=== PATIENT | female | born 1965 | race Caucasian/White ===

== ENCOUNTER 2020-06-12 17:31 | Inpatient (IN) ==
[2020-06-12] MEDS ORDERED: ASPIRIN CHEW 324 MG PO STA (17:49)
[2020-06-12] MEDS ORDERED: FAMOTIDINE 20MG/5ML IV PUSH IV STA (17:49)
[2020-06-12 18:10] LABS: Basophils # (auto) 0.01 K/uL (0-0.2); Basophils % (auto) 0.1 %; Eosinophils # (auto) 0.17 K/uL (0-0.5); Eosinophils % (auto) 1.7 %; Hematocrit (blood only) 39.1 % (37-47); Hemoglobin 13.3 g/dL (12.0-16.0); Immature Granulocytes # (auto) 0.03 K/uL (0.00-0.02); Immature Granulocytes % (auto) 0.3 %; Lymphocytes # (auto) 2.67 K/uL (1.2-3.4); Mean Corpuscular Hemoglobin 30.7 pg (25-34); Mean Corpuscular Volume 90.3 fL (80-100); Mean Platelet Volume 10.2 fL (7.4-10.4); Monocytes % (auto) 6.1 %; Neutrophils # (auto) 6.42 K/uL (1.4-6.5); Neutrophils % (auto) 64.8 %; Platelet Count 240 K/uL (130-400); RDW Coefficient of Variation 12.5 % (11.5-14.5); RDW Standard Deviation 41.8 fL (36.4-46.3); Red Blood Count 4.33 M/uL (4.2-5.4)
[2020-06-12 18:29] LABS: Partial Thromboplastin Ratio 0.9; Partial Thromboplastin Time 25.6 Seconds (21.0-31.0); Prothrombin Time 10.3 Seconds (9.0-12.0)
--- NOTE | 2020-06-12 18:32 | XRay Report ---
XR chest 1V portable CLINICAL HISTORY: Chest Pain COMPARISON STUDY: Chest radiograph April 06, 2015. FINDINGS: Lung volumes are normal. Lungs are clear. There is no pneumothorax or pleural effusion. Car diac size is normal. Mediastinal contours are normal. There is no evidence for pulmonary edema. Patie nt is mildly rotated. IMPRESSION: No acute cardiopulmonary findings. ACT 112: Negative or not required by law. Electronically signed by: Freddy Ruiz M.D. 06/12/2020 6:30 PM
[2020-06-12 18:41] LABS: Albumin Level 3.3 gm/dl (3.4-5.0); BUN Creatinine Ratio 10.9 (10-20); Calcium 8.7 mg/dl (8.5-10.1); Creatinine Clr Calc Pharmacy 83.9 ml/min; Est GFR (Non-African American) 83.7; Potassium 3.7 mmol/L (3.5-5.1)
[2020-06-12 19:06] LABS: Bilirubin,Total 0.3 mg/dl (0.2-1); Globulin 3.4 gm/dl (2.5-4.0); Total Protein 6.7 gm/dl (6.4-8.2); Troponin I 0.341 ng/ml (0-0.045)
[2020-06-12] MEDS ORDERED: Heparin IV Adult Wt-Based Low-Dose WITH Bolus Protocol IV STA (19:07)
[2020-06-12] MEDS ORDERED: NITROGLYCERIN 2% OINTMENT 30GM TUBE EXT ONE (19:14)
[2020-06-12] MEDS ORDERED: HEPARIN SODIUM/DEXTROSE 25,000 UNITS/500 ML BAG IV SCH (19:15)
[2020-06-12] MEDS ORDERED: HEPARIN SOD (PORCINE) 1000 UNIT/ML 10 ML VIAL ONE (19:40)
--- NOTE | 2020-06-12 19:52 | Emergency Department Note ---
History of Present Illness General Chief Complaint: Chest Pain Stated Complaint: CHEST PAIN, SORE THROAT, ARM PAIN Source: patient and RN notes reviewed Mode of arrival: ambulatory Limitations: no limitations History of Present Illness Provider Complaint: chest pain This patient is a 54-year-old female who presents emergency department with complaints of substernal chest burning into her throat that woke her from sleep in the middle of the night. Patient states she suffers from terrible reflux and felt this is what she was suffering from. She took her omeprazole without any significant relief. Patient states this morning around 930 she noticed that the pain moved into her left shoulder. She went to work today but suffered most of the day. This evening she came home and tried to lay down but could not get comfortable. She denies any significant shortness of breath but admits to nausea no sore throat. Patient states she does smoke cigarettes. She admits to a "significant weight gain" recently. She has not seen her physician in several years. 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 Home Medications Medication Instructions Recorded Confirmed Type omeprazole 20 mg capsule,delayed 20 mg PO DAILY PRN #30 cap 02/04/19 06/12/20 History release magnesium 0 mg PO DAILY 06/12/20 06/12/20 History red yeast rice 600 mg PO DAILY 06/12/20 06/12/20 History Allergies Allergy/AdvReac Type Severity Reaction Status Date / Time No Known Allergies Allergy Verified 06/12/20 18:40 Past Med/Surg History Medical History (Updated 06/12/20 @ 20:01 by Annette Hernandez MD) GERD (gastroesophageal reflux disease) Hypercholesterolemia Obesity (BMI 30-39.9) Tobacco dependency Social History (Updated 06/12/20 @ 19:55 by Annette Hernandez MD) Smoking Status: Current every day smoker Tobacco Type: Cigarettes Current Living Situation: Family current occupational status: employed Feels Safe at Home: Yes Review of Systems See HPI for pertinent positives & negatives. and A total of 10 systems reviewed and were otherwise negative Physical Exam Vital Signs Vital Signs - 24 hr 06/12/20 17:36 06/12/20 18:06 06/12/20 19:50 Temperature 36.8 C Temperature Source Oral Pulse Rate 68 Pulse Rate [Right Finger] 69 Pulse Rhythm Regular Pulse Strength Normal Respiratory Rate 18 12 Respiratory Effort / Characteristics Non-Labored Respiratory Depth Normal Respiratory Pattern Regular Blood Pressure 133/93 Blood Pressure [Right Arm] 172/62 H Blood Pressure Mean 106 Blood Pressure Mean [Right Arm] 98 Blood Pressure Position Sitting Pulse Oximetry 97 98 Oxygen Delivery Method Room Air Room Air Room Air Sepsis Recent Fever Within 48 Hours No Sepsis New/Unexplained Change in Mental Status No Sepsis Action Taken by Nursing No Action Required Vital signs reviewed. General: Well-appearing 54-year-old female, in no significant distress. HEENT: No scleral icterus, PERRLA, neck supple. Atraumatic. Cardiovascular: Regular rate and rhythm, no extra sounds. Pulmonary: Clear to auscultation bilaterally, normal work of breathing. Abdomen: Soft, obese, nontender, nondistended, positive bowel sounds. Musculoskeletal: Atraumatic, no peripheral edema. Neurologic: Patient awake alert and oriented x 3 Skin: Warm, dry, no rash Course Administered Medications Heparin Sodium/Dextrose (Heparin Sodium/Dextrose) 25,000 units in 500 mls @ 0.02 mls/hr IV .Q24H [facility]; Protocol Stop: 07/12/20 19:14 Last Admin: 06/12/20 19:49 Dose: 16 units/hr, 0.3 mls/hr Documented by: [id number] Cosigned by: [id number] Discontinued Medications Aspirin (Aspirin Chew 324 Mg) 162 mg PO NOW STA Stop: 06/12/20 17:50 Last Admin: 06/12/20 18:11 Dose: 162 mg Documented by: [id number] Famotidine (Famotidine 20mg/5ml Iv Push) 20 mg IV ONE STA Stop: 06/12/20 17:50 Last Admin: 06/12/20 18:11 Dose: 20 mg Documented by: [id number] Heparin Sodium (Porcine) (Heparin Sod (Porcine) 1000 Unit/Ml 10 Ml Vial) Confirm Administered Dose 10,000 units .ROUTE .STK-MED ONE Stop: 06/12/20 19:41 Last Admin: 06/12/20 19:49 Dose: 4,000 units Documented by: [id number] Cosigned by: [id number] Nitroglycerin (Nitroglycerin 2% Ointment 30gm Tube) 1 inch EXT NOW ONE Stop: 06/12/20 19:15 Last Admin: 06/12/20 19:49 Dose: 1 inch Documented by: [id number] Medical Decision Making Differential Diagnosis Cardiac ischemia, aortic dissection, pulmonary embolism, pneumothorax, pneumonia, pericarditis, myocarditis, esophageal rupture, GERD, cholecystitis, pancreatitis, musculoskeletal, as well as other pathologies. Home Medications Current Medication List: was personally reviewed by me Laboratory Data Attestation: I reviewed the patient's lab results. Result diagrams: 06/12/20 18:01 06/12/20 18:01 Labs: Lab Results 06/12/20 06/12/20 06/12/20 Range/Units 18:01 18:01 18:01 WBC 9.90 (4.8-10.8) K/uL RBC 4.33 (4.2-5.4) M/uL Hgb 13.3 (12.0-16.0) g/dL Hct 39.1 (37-47) % MCV 90.3 (80-100) fL MCH 30.7 (25-34) pg MCHC 34.0 (32-36) g/dL RDW Std Deviation 41.8 (36.4-46.3) fL RDW Coeff of Ella 12.5 (11.5-14.5) % Plt Count 240 (130-400) K/uL MPV 10.2 (7.4-10.4) fL Immature Gran % (Auto) 0.3 % Neut % (Auto) 64.8 % Lymph % (Auto) 27.0 % Forest % (Auto) 6.1 % Eos % (Auto) 1.7 % Baso % (Auto) 0.1 % Neut # (Auto) 6.42 (1.4-6.5) K/uL Lymph # (Auto) 2.67 (1.2-3.4) K/uL Forest # (Auto) 0.60 H (0.11-0.59) K/uL Eos # (Auto) 0.17 (0-0.5) K/uL Baso # (Auto) 0.01 (0-0.2) K/uL Immature Gran # (Auto) 0.03 H (0.00-0.02) K/uL PT 10.3 (9.0-12.0) Seconds INR 1.0 (0.9-1.1) APTT 25.6 (21.0-31.0) Seconds PTT Ratio 0.9 Sodium 140 (136-145) mmol/L Potassium 3.7 (3.5-5.1) mmol/L Chloride 109 H (98-107) mmol/L Carbon Dioxide 25 (21-32) mmol/L Anion Gap 7.0 (3-11) BUN 9 (7-18) mg/dl Creatinine 0.79 (0.6-1.2) mg/dl Est Cr Clr Drug Dosing 83.9 ml/min Est GFR ( Amer) 97.0 Est GFR (Non-Af Amer) 83.7 BUN/Creatinine Ratio 10.9 (10-20) Glucose 94 (70-99) mg/dl Calcium 8.7 (8.5-10.1) mg/dl Total Bilirubin 0.3 (0.2-1) mg/dl AST 23 (15-37) U/L ALT 43 (12-78) U/L Alkaline Phosphatase 96 (45-117) U/L Troponin I 0.341 H* (0-0.045) ng/ml Total Protein 6.7 (6.4-8.2) gm/dl Albumin 3.3 L (3.4-5.0) gm/dl Globulin 3.4 (2.5-4.0) gm/dl Albumin/Globulin Ratio 1.0 (0.9-2) Lipase 95 (73-393) U/L ECG Data Attestation: I personally reviewed and interpreted this ECG as follows: Indication: chest pain Rate (beats per minute): 58 Rhythm: sinus bradycardia Findings: + other (Normal QTc) and + acute ischemic change; no PAC and no PVC Blood Pressure Blood Pressure Findings: Elevated blood pressure Blood Pressure Disposition: further management by hospitalist LEEANN Narrative This patient was evaluated and appeared to be in no significant distress. IV access was obtained and laboratory work was drawn. An order for cardiac monitoring was placed and the patient is noted to be in a sinus bradycardia. EKG reveals no evidence of acute ischemia. The patient was given IV Pepcid 20 mg in addition to 162 mg of p.o. aspirin as she had taken 2 baby aspirin earlier today. Chest x-ray was performed and is negative for acute pathology. The patient's laboratory work reveals a troponin of 0.341. The patient's risk factors of cholesterol, tobacco smoking and obesity in addition to a positive troponin warrant inpatient evaluation. Patient was placed on a heparin drip and was given 1 inch of nitroglycerin paste for complaints of recurrent left arm discomfort. She was informed of the findings and plan. She was understandably upset but agreeable. Dr. Will of the hospitalist service was consulted and will evaluate the patient for further management. Impression & Plan Acute non-ST elevation myocardial infarction (NSTEMI) Critical Care Time Critical Care Time: Yes I have personally spent greater than 30 minutes of critical care time in the direct management of this patient. This includes bedside care, interpretation of diagnostic studies, and testing, discussion with consultants, patient, and family members, and other required patient management activities. This 30 minutes is in excess of all separately billable procedures. Discharge Plan Visit Data Chief Complaint: Chest Pain Stated Complaint: CHEST PAIN, SORE THROAT, ARM PAIN ED Provider: Annette Hernandez Discharge Problem: Acute non-ST elevation myocardial infarction (NSTEMI) Forms Stand Alone Forms: [facility] [place] [facility] Prescriptions Prescriptions: No Action omeprazole 20 mg capsule,delayed release(DR/EC) 20 mg PO DAILY PRN (Reason: HEARTBURN/INDIGESTION) Qty: 30 RF: 0 magnesium 250 mg Tablet 0 mg PO DAILY RF: 0 red yeast rice 600 mg Tablet 600 mg PO DAILY RF: 0
--- NOTE | 2020-06-12 20:50 | History & Physical Report ---
Date of Service June 12, 2020 Assessment & Plan (1) Chest pain: 54yo C female with history of HLP, tobacco abuse, obesity presenting with CP that started appx 8 hours ago. EKG with no acute ischemic changes. Troponin mildly elevated at 0.341. Patient with HTN while in ER to 190/84. ?NSTEMI vs HTN urgency -Admit to PCU, continuous cardiac monitoring -Trend troponin q 8 hours x 3 sets -Check 2D echo -Check HgbA1C and lipid panel -Nitro PRN chest pain -ASA 81mg po daily -Cardiology consultation appreciated Present on Admission?: Yes (2) GERD (gastroesophageal reflux disease): Chronic -Protonix 40mg po daily -Maalox PRN Present on Admission?: Yes (3) Hypercholesterolemia: Patient reports history of HLP as well as family history of HLP. She has xanthelasma present on bialteral eyelids. Last lipid panel done in October 2018 with total cholesterol of 284, OPL=246, HDL=39 and HT=114. She is not currently on a statin -Repeat lipid panel -Will most likely need statin prior to DC. Present on Admission?: Yes (4) Tobacco dependency: Chronic, >1ppd. Encourage tobacco cessation -Nicoderm patch -Patient enquired about nicotine replacement for quitting vs Chantix to be considered on DC F/E/N - Heplock. Check Mg and PO4 x 1, Heart healthy diet, NPO after midnight for possible cath Ppx - low risk for DVT Code- Full Dispo -Admit to PCU Present on Admission?: Yes History of Present Illness Chief Complaint: chest pain Primary Care Provider: Yvonne Manzano MD Marla Kearns is a 54yo C female with history of HLP, tobacco use presenting with chest pain. Patient reports severe heart burn and regurgitation last evening. She woke up this morning with a sore throat and pain in her upper chest. She felt restless throughout the day and couldn't relax. Around 13:00 she developed discomfort in her chest and down her left arm. Pain 6-7/10 in severity, squeezing discomfort with associated diaphoresis, lightheadedness, dizziness and SOB. Patient is active and independent. 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 She denies chest pain or SOB that occurs with activity or exertion. She has never had a heart attack in the past. No history of CHF, arrhythmia. Patient does not routinely see a physician. On arrival to the ER she was found to be afebrile, Hypertensive otherwise no complaints. No chest pain at this time. ER Course: ASA 162mg, Heparin bolus and drip, Nitro paste x 1 inch Allergies Allergy/AdvReac Type Severity Reaction Status Date / Time No Known Allergies Allergy Verified 06/12/20 18:40 Home Medications Medication Instructions Recorded Confirmed Type omeprazole 20 mg capsule,delayed 20 mg PO DAILY PRN #30 cap 02/04/19 06/12/20 History release magnesium 0 mg PO DAILY 06/12/20 06/12/20 History red yeast rice 600 mg PO DAILY 06/12/20 06/12/20 History Past Med/Surg History Medical History (Updated 06/12/20 @ 21:12 by Ivana Will DO) GERD (gastroesophageal reflux disease) Hypercholesterolemia Obesity (BMI 30-39.9) Tobacco dependency Surgical History (Updated 06/12/20 @ 21:04 by Ivana Will DO) History of section Family History (Updated 06/12/20 @ 21:04 by Ivana Will DO) Other Coronary heart disease Dyslipidemia Social History (Updated 06/12/20 @ 19:55 by Annette Hernandez MD) Smoking Status: Current every day smoker Tobacco Type: Cigarettes Cigarettes Per Day: 20; Hx Alcohol Use: No Hx Substance Use: No Preferred Language: R[place] Communication Ability: Effective Communication Assistant Required: No Beliefs That Will Affect Care: None Current Living Situation: Family current occupational status: employed Other Information That Helps Us Care for You: No Feels Safe at Home: Yes Safety Concerns: Feels Safe At This Time Assistive Devices: None Review of Systems Review of Systems: All systems reviewed & are unremarkable except as noted in HPI & below Physical Exam Physical Exam: General: patient resting comfortably, NAD, non-toxic in appearance, AA&O x 4, anxious Skin: warm, dry, intact, no rashes, xanthelasma plaques present on bilateral upper eyelids. HEENT: NC/AT, PERRL, EOMI, conjunctiva without injection, external ear normal to inspection and nontender, nares patent, moist mucus membranes, dentition intact, no oropharyngeal lesions, neck supple, trachea midline, no LAD, no thyromegaly, no JVD Heart: +S1/S2, regular, 3/6 DOMINIC at 2nd right ICS, right carotid bruit Lungs: equal air entry bilaterally, no rales/rhonchi/wheezes Abd: +BS, soft, NT/ND, no masses/organomegaly/ascites Ext: warm, 2+ pulses in UE/LE bilaterally, no clubbing/cyanosis or edema Neuro: nonfocal, patient AA&O x 4, speech intact, no facial droop, moving all extremities on command with equal strength 5/5 Results & Data Results & Data ([facility]) Vital Signs (Past 12 Hours) Vital Signs Temp Pulse Pulse Resp BP BP Pulse Ox 06/12/20 19:50 69 12 172/62 H 98 06/12/20 17:36 36.8 C 68 18 133/93 97 Laboratory Results Lab Results 06/12/20 06/12/20 06/12/20 Range/Units 18:01 18:01 18:01 WBC 9.90 (4.8-10.8) K/uL RBC 4.33 (4.2-5.4) M/uL Hgb 13.3 (12.0-16.0) g/dL Hct 39.1 (37-47) % MCV 90.3 (80-100) fL MCH 30.7 (25-34) pg MCHC 34.0 (32-36) g/dL RDW Std Deviation 41.8 (36.4-46.3) fL RDW Coeff of Ella 12.5 (11.5-14.5) % Plt Count 240 (130-400) K/uL MPV 10.2 (7.4-10.4) fL Immature Gran % (Auto) 0.3 % Neut % (Auto) 64.8 % Lymph % (Auto) 27.0 % Josephine % (Auto) 6.1 % Eos % (Auto) 1.7 % Baso % (Auto) 0.1 % Neut # (Auto) 6.42 (1.4-6.5) K/uL Lymph # (Auto) 2.67 (1.2-3.4) K/uL Josephine # (Auto) 0.60 H (0.11-0.59) K/uL Eos # (Auto) 0.17 (0-0.5) K/uL Baso # (Auto) 0.01 (0-0.2) K/uL Immature Gran # (Auto) 0.03 H (0.00-0.02) K/uL PT 10.3 (9.0-12.0) Seconds INR 1.0 (0.9-1.1) APTT 25.6 (21.0-31.0) Seconds PTT Ratio 0.9 Sodium 140 (136-145) mmol/L Potassium 3.7 (3.5-5.1) mmol/L Chloride 109 H (98-107) mmol/L Carbon Dioxide 25 (21-32) mmol/L Anion Gap 7.0 (3-11) BUN 9 (7-18) mg/dl Creatinine 0.79 (0.6-1.2) mg/dl Est Cr Clr Drug Dosing 83.9 ml/min Est GFR ( Amer) 97.0 Est GFR (Non-Af Amer) 83.7 BUN/Creatinine Ratio 10.9 (10-20) Glucose 94 (70-99) mg/dl Calcium 8.7 (8.5-10.1) mg/dl Total Bilirubin 0.3 (0.2-1) mg/dl AST 23 (15-37) U/L ALT 43 (12-78) U/L Alkaline Phosphatase 96 (45-117) U/L Troponin I 0.341 H* (0-0.045) ng/ml Total Protein 6.7 (6.4-8.2) gm/dl Albumin 3.3 L (3.4-5.0) gm/dl Globulin 3.4 (2.5-4.0) gm/dl Albumin/Globulin Ratio 1.0 (0.9-2) Lipase 95 (73-393) U/L SARS-CoV-2 Ag (Rapid) (Negative) 06/12/20 Range/Units Unknown WBC (4.8-10.8) K/uL RBC (4.2-5.4) M/uL Hgb (12.0-16.0) g/dL Hct (37-47) % MCV (80-100) fL MCH (25-34) pg MCHC (32-36) g/dL RDW Std Deviation (36.4-46.3) fL RDW Coeff of Ella (11.5-14.5) % Plt Count (130-400) K/uL MPV (7.4-10.4) fL Immature Gran % (Auto) % Neut % (Auto) % Lymph % (Auto) % Josephine % (Auto) % Eos % (Auto) % Baso % (Auto) % Neut # (Auto) (1.4-6.5) K/uL Lymph # (Auto) (1.2-3.4) K/uL Josephine # (Auto) (0.11-0.59) K/uL Eos # (Auto) (0-0.5) K/uL Baso # (Auto) (0-0.2) K/uL Immature Gran # (Auto) (0.00-0.02) K/uL PT (9.0-12.0) Seconds INR (0.9-1.1) APTT (21.0-31.0) Seconds PTT Ratio Sodium (136-145) mmol/L Potassium (3.5-5.1) mmol/L Chloride (98-107) mmol/L Carbon Dioxide (21-32) mmol/L Anion Gap (3-11) BUN (7-18) mg/dl Creatinine (0.6-1.2) mg/dl Est Cr Clr Drug Dosing ml/min Est GFR ( Amer) Est GFR (Non-Af Amer) BUN/Creatinine Ratio (10-20) Glucose (70-99) mg/dl Calcium (8.5-10.1) mg/dl Total Bilirubin (0.2-1) mg/dl AST (15-37) U/L ALT (12-78) U/L Alkaline Phosphatase (45-117) U/L Troponin I (0-0.045) ng/ml Total Protein (6.4-8.2) gm/dl Albumin (3.4-5.0) gm/dl Globulin (2.5-4.0) gm/dl Albumin/Globulin Ratio (0.9-2) Lipase (73-393) U/L SARS-CoV-2 Ag (Rapid) Negative (Negative) Diagnostic Findings XR chest 1V portable CLINICAL HISTORY: Chest Pain COMPARISON STUDY: Chest radiograph April 06, 2015. FINDINGS: Lung volumes are normal. Lungs are clear. There is no pneumothorax or pleural effusion. Cardiac size is normal. Mediastinal contours are normal. There is no evidence for pulmonary edema. Patient is mildly rotated. IMPRESSION: No acute cardiopulmonary findings. ACT 112: Negative or not required by law. Electronically signed by: Freddy Ruiz M.D. 06/12/2020 6:30 PM Dictated: 06/12/201829Transcribed: 06/12/201829 ECG Additional Comments: The study shows SB at 58, normal axis, DJ=016, QRS=88, LLf=408, no acute ischemic changes PG Care Time/CCT Total # of Minutes Spent Total Time Spent with Patient: Total time spent is greater than 50% in coordination of care (as documented) at patient's floor/unit and/or counseling patient: Coding Level of Care Code 14930 Initial Inpt Care Lvl 3 Diagnoses Chest pain R07.9 Chest pain type: unspecified GERD (gastroesophageal reflux disease) K21.9 Esophagitis presence: esophagitis presence not specified Hypercholesterolemia E78.00 Tobacco dependency F17.200 (1) Chest pain Chest pain type: unspecified Qualified Code(s): R07.9 - Chest pain, unspecified (2) GERD (gastroesophageal reflux disease) Esophagitis presence: esophagitis presence not specified Qualified Code(s): K21.9 - Gastro-esophageal reflux disease without esophagitis
[2020-06-12] MEDS ORDERED: ALUMINUM/MAGNESIUM SUSP 30 ML UDC PO PRN (21:11)
[2020-06-12] MEDS ORDERED: ONDANSETRON INJ 2 MG/ML 2 ML VIAL IV PRN (21:38)
[2020-06-12] MEDS ORDERED: NITROGLYCERIN SL 0.4 MG/TAB TAB SL PRN (21:38)
[2020-06-12] MEDS ORDERED: ACETAMINOPHEN 325 MG TAB PO PRN (21:38)
[2020-06-12 22:04] LABS: Magnesium 2.1 mg/dl (1.8-2.4); Phosphorus 3.7 mg/dl (2.5-4.9)
[2020-06-13] MEDS: MIRTAZAPINE TAB 15 MG TAB PO SCH ×2 (00:22→02:27)
[2020-06-13 00:51] LABS: Partial Thromboplastin Ratio 1.2; Partial Thromboplastin Time 33.9 Seconds (21.0-31.0)
[2020-06-13] MEDS ORDERED: HEPARIN IV BOLUS 3,000 UNITS in SYRINGE 0 ML IV ONE (02:00)
--- NOTE | 2020-06-13 05:34 | Communication Note ---
Date of Service: June 13, 2020 Patient with significant bradycardia while asleep with a 4 second pause and another 3 second pause; 13 beat vtach on monitor, obvious sleep apnea with a gonal breathing. She is easily arousable and oriented but is sleepy and goes back to sleep quickly. She has no acute complaints. I along with nursing staff concerned that agonal breathing could lead to cardiac arrest. Will order CPAP to place on patient until more awake alert. She denies history of sleep apnea or having a prior sleep study done. Will get an ECG to ensure no significant ST changes that would require more urgent intervention. Will get STAT labs to see if any electrolyte corrections could be made to better protect her from cardiac dysfunction. Resident Activity Tracking Resident Involvement: Resident Care Provided Care Provided: Adult Hospital Medicine
[2020-06-13] MEDS ORDERED: MELATONIN 3 MG TAB PO PRN (05:36)
[2020-06-13 06:05] LABS: Estimated Average Glucose 117 mg/dl; Hemoglobin A1C 5.7 % (4.5-5.6)
[2020-06-13 06:26] LABS: Basophils # (auto) 0.02 K/uL (0-0.2); Basophils % (auto) 0.2 %; Eosinophils # (auto) 0.23 K/uL (0-0.5); Eosinophils % (auto) 2.7 %; Hematocrit (blood only) 36.5 % (37-47); Hemoglobin 12.3 g/dL (12.0-16.0); Immature Granulocytes # (auto) 0.03 K/uL (0.00-0.02); Immature Granulocytes % (auto) 0.4 %; Lymphocytes # (auto) 3.32 K/uL (1.2-3.4); Lymphocytes % (auto) 39.3 %; Mean Corpuscular Hemoglobin 30.9 pg (25-34); Mean Corpuscular Volume 91.7 fL (80-100); Mean Platelet Volume 10.1 fL (7.4-10.4); Monocytes # (auto) 0.47 K/uL (0.11-0.59); Monocytes % (auto) 5.6 %; Neutrophils # (auto) 4.38 K/uL (1.4-6.5); Neutrophils % (auto) 51.8 %; Platelet Count 252 K/uL (130-400); RDW Coefficient of Variation 12.8 % (11.5-14.5); RDW Standard Deviation 43.2 fL (36.4-46.3); Red Blood Count 3.98 M/uL (4.2-5.4); White Blood Count 8.45 K/uL (4.8-10.8)
[2020-06-13 06:28] LABS: Mean Corpuscular Hgb Conc 33.7 g/dL (32-36)
[2020-06-13 06:53] LABS: Magnesium 2.3 mg/dl (1.8-2.4); Phosphorus 4.4 mg/dl (2.5-4.9); Troponin I 0.618 ng/ml (0-0.045)
[2020-06-13 07:52] LABS: Partial Thromboplastin Ratio 1.4; Partial Thromboplastin Time 39.6 Seconds (21.0-31.0)
--- NOTE | 2020-06-13 09:32 | Cardiology Consultation ---
Date of Consultation June 13, 2020 Assessment & Plan (1) Acute non-ST elevation myocardial infarction (NSTEMI): (2) Hypercholesterolemia: (3) Bradycardia: (4) Sleep apnea: ASSESSMENT/PLAN: 1. NSTEMI: Her symptoms are a bit atypical but she has developed troponin that are barely diagnostic of myocardial infarction. She has multiple risk factors including LDL in the past over 200, tobacco abuse, and was hypertensive on presentation. Recommend cardiac catheterization. Risks and benefits were discussed with her. She was made aware that CT surgery is not available this facility. She was agreeable to undergo diagnostic angiography and PCI, if deemed appropriate. Continue aspirin 81 mg daily. She is on a heparin drip per primary service. Start high-intensity statin therapy. Will consider NORAH- inhibitor. No beta-paola due to bradycardia at this time. 2. Hypercholesterolemia: LDL in 2019 was 214 and during this hospital stay 154. Start high-intensity statin therapy in the form of atorvastatin 80 mg daily. 3. Sleep apnea: It is reported in the chart that she had obvious sleep apnea with agonal breathing overnight. We discussed sleep apnea. Recommend formal testing and treatment as appropriate. 4. Bradycardia: Mildly bradycardic on presenting ECG however more profound bradycardia overnight with witnessed sleep apnea. No beta-paola at this time given bradycardia while awake however the more profound bradycardia is likely due to sleep apnea and should improve with appropriate therapy. No indication for pacemaker at this time. 5. Disposition: Cardiology will continue to follow. Cardiac catheterization as above. Patient care communicated with Dr. Sheppard of the primary hospitalist service. Highly complex medical issues. Thank you for allowing me to participate in the care of your patient. Please call for any other questions or concerns. Sincerely, Phani Nunez M.D. History of Present Illness Reason for Consultation: NSTEMI; chest pain Requesting Physician: Dr. Lorna Will Attending Physician: Mary Beth Sheppard MD History of Present Illness Ms. Kearns is a pleasant 54-year-old female with history significant for hypercholesterolemia, tobacco abuse, and acid reflux. She does not follow with physician on a regular basis. She was admitted on 06/12/2020 with neck and left arm pain. Admitting note also mentions chest pain however she denies that at this time. She states that 2 days ago she was having significant acid reflux, specifically noted in the back of her mouth. She denies actual vomiting. She states that she does have acid reflux occasionally. Yesterday when she awakened, she noted that the base of her neck was sore. She took Mucinex without improvement. She laid back down later in the day and noted left arm pain. She also had lightheadedness, diaphoresis, and associated shortness of breath. She could not get comfortable. According to the HPI, she also had chest discomfort at approximately 1:00 p.m. which she described as a squeezing discomfort at that time. In the emergency department, she was given aspirin, heparin, and nitro paste. Her symptoms resolved. She believes that her symptoms persisted however for approximately 6 hours yesterday. She had occasional palpitations yesterday described as a fluttering sensation but none today. She has occasional leg swelling historically. She does not exercise but she remains active at home, taking care of her elderly mother with Alzheimer's. She has not had recent chest discomfort or shortness of breath with exertion prior to yesterday's events. She is currently chest pain-free and her neck pain has completely resolved. She still has some soreness in her left arm. Overnight, it was noted by nursing staff that she would be bradycardic at time with rates in the 30s but remained in sinus. She had pauses up to 3.5 seconds. She admits that she snores and has paroxysmal nocturnal dyspnea. She believes that she stops breathing at times. She has not had a sleep study. Review of systems: As above. She also denies melena, hematochezia, hematuria, syncope, near-syncope. Review of systems otherwise negative/unremarkable. Family history: Father had an [place] during leg amputation secondary to peripheral arterial disease. Social history: She smokes 1 pack per day and has smoked since the age of 14, briefly quitting at times. Occasional alcohol. No drugs. . Has 1 son. She lives at home with her son and mother with Alzheimer's. 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 She is unaccompanied. Allergies Allergy/AdvReac Type Severity Reaction Status Date / Time No Known Allergies Allergy Verified 06/12/20 18:40 Home Medications Medication Instructions Recorded Confirmed Type omeprazole 20 mg capsule,delayed 20 mg PO DAILY PRN #30 cap 02/04/19 06/12/20 History release magnesium 0 mg PO DAILY 06/12/20 06/12/20 History red yeast rice 600 mg PO DAILY 06/12/20 06/12/20 History Patient History Medical History (Updated 06/13/20 @ 09:38 by Joseph Nunez MD) GERD (gastroesophageal reflux disease) Hypercholesterolemia Obesity (BMI 30-39.9) Tobacco dependency Surgical History (Updated 06/12/20 @ 21:04 by Ivana Will DO) History of section Family History (Updated 06/12/20 @ 21:04 by Ivana Will DO) Other Coronary heart disease Dyslipidemia Social History (Updated 06/12/20 @ 19:55 by Annette Hernandez MD) Smoking Status: Current every day smoker Tobacco Type: Cigarettes Cigarettes Per Day: 20; Hx Alcohol Use: No Hx Substance Use: No Preferred Language: Lithuanian Communication Ability: Effective Director Technical Required: No Beliefs That Will Affect Care: None Current Living Situation: Family current occupational status: employed Feels Safe at Home: Yes Assistive Devices: None Physical Exam Physical Exam: Gen.: No acute distress. Was sleeping but easily arousable with verbal stimuli. Oriented. HEENT: Anicteric sclera. Xanthelasma plaques noted on bilateral upper eyelids. Neck: No JVD. No bruits. Normal carotid upstrokes bilaterally. Cardiac: PMI was nonpalpable. No ventricular heave. Regular. Normal S1-S2. 1/6 systolic murmur. No rubs, or gallops. Pulmonary: Clear to auscultation bilaterally without wheezes, rales, or rhonchi. Abdomen: Soft, nontender, nondistended, with normoactive bowel sounds. No bruits noted. Extremities: 2+ radial pulses bilaterally. 2+ posterior tibialis pulses bilaterally. No edema or cyanosis. No palpable cords. Psychiatric: Affect appears appropriate. Results & Data ([facility]) Vital Signs (Past 12 Hours) Vital Signs Temp Pulse Pulse Resp BP BP Pulse Ox 06/13/20 09:10 62 18 145/90 H 96 06/13/20 08:15 36.5 C 52 L 18 125/71 97 06/13/20 05:43 53 L 17 96 06/13/20 03:59 36.6 C 54 L 8 L 122/70 94 06/13/20 00:00 67 06/12/20 23:50 36.6 C 67 18 130/71 97 06/12/20 22:00 36.8 C 61 18 149/89 H 95 06/12/20 21:46 60 06/12/20 21:38 83 Laboratory Results Laboratory Results - last 24 hr 06/12/20 06/12/20 06/12/20 18:01 18:01 18:01 WBC 9.90 RBC 4.33 Hgb 13.3 Hct 39.1 MCV 90.3 MCH 30.7 MCHC 34.0 RDW Std Deviation 41.8 RDW Coeff of Ella 12.5 Plt Count 240 MPV 10.2 Immature Gran % (Auto) 0.3 Neut % (Auto) 64.8 Lymph % (Auto) 27.0 Cataño % (Auto) 6.1 Eos % (Auto) 1.7 Baso % (Auto) 0.1 Neut # (Auto) 6.42 Lymph # (Auto) 2.67 Cataño # (Auto) 0.60 H Eos # (Auto) 0.17 Baso # (Auto) 0.01 Immature Gran # (Auto) 0.03 H PT 10.3 INR 1.0 APTT 25.6 PTT Ratio 0.9 Sodium 140 Potassium 3.7 Chloride 109 H Carbon Dioxide 25 Anion Gap 7.0 BUN 9 Creatinine 0.79 Est Cr Clr Drug Dosing 83.9 Est GFR ( Amer) 97.0 Est GFR (Non-Af Amer) 83.7 BUN/Creatinine Ratio 10.9 Glucose 94 Estimat Average Glucose Hemoglobin A1c Calcium 8.7 Phosphorus Magnesium Total Bilirubin 0.3 AST 23 ALT 43 Alkaline Phosphatase 96 Troponin I 0.341 H* Total Protein 6.7 Albumin 3.3 L Globulin 3.4 Albumin/Globulin Ratio 1.0 Triglycerides Cholesterol LDL Cholesterol, Calc VLDL Cholesterol, Calc HDL Cholesterol Cholesterol/HDL Ratio Lipase 95 SARS-CoV-2 Ag (Rapid) 06/12/20 06/12/20 06/12/20 18:01 18:01 Unknown WBC RBC Hgb Hct MCV MCH MCHC RDW Std Deviation RDW Coeff of Ella Plt Count MPV Immature Gran % (Auto) Neut % (Auto) Lymph % (Auto) Cata[place] % (Auto) Eos % (Auto) Baso % (Auto) Neut # (Auto) Lymph # (Auto) Cata[place] # (Auto) Eos # (Auto) Baso # (Auto) Immature Gran # (Auto) PT INR APTT PTT Ratio Sodium Potassium Chloride Carbon Dioxide Anion Gap BUN Creatinine Est Cr Clr Drug Dosing Est GFR ( Amer) Est GFR (Non-Af Amer) BUN/Creatinine Ratio Glucose Estimat Average Glucose 117 Hemoglobin A1c 5.7 H Calcium Phosphorus 3.7 Magnesium 2.1 Total Bilirubin AST ALT Alkaline Phosphatase Troponin I Total Protein Albumin Globulin Albumin/Globulin Ratio Triglycerides 101 Cholesterol 217 H LDL Cholesterol, Calc 154 VLDL Cholesterol, Calc 20 HDL Cholesterol 43 Cholesterol/HDL Ratio 5 Lipase SARS-CoV-2 Ag (Rapid) Negative 06/13/20 06/13/20 06/13/20 00:09 02:02 06:09 WBC 8.45 RBC 3.98 L Hgb 12.3 Hct 36.5 L MCV 91.7 MCH 30.9 MCHC 33.7 RDW Std Deviation 43.2 RDW Coeff of Ella 12.8 Plt Count 252 MPV 10.1 Immature Gran % (Auto) 0.4 Neut % (Auto) 51.8 Lymph % (Auto) 39.3 Cataño % (Auto) 5.6 Eos % (Auto) 2.7 Baso % (Auto) 0.2 Neut # (Auto) 4.38 Lymph # (Auto) 3.32 Cataño # (Auto) 0.47 Eos # (Auto) 0.23 Baso # (Auto) 0.02 Immature Gran # (Auto) 0.03 H PT INR APTT 33.9 H PTT Ratio 1.2 Sodium Potassium Chloride Carbon Dioxide Anion Gap BUN Creatinine Est Cr Clr Drug Dosing Est GFR ( Amer) Est GFR (Non-Af Amer) BUN/Creatinine Ratio Glucose Estimat Average Glucose Hemoglobin A1c Calcium Phosphorus Magnesium Total Bilirubin AST ALT Alkaline Phosphatase Troponin I 0.699 H* Total Protein Albumin Globulin Albumin/Globulin Ratio Triglycerides Cholesterol LDL Cholesterol, Calc VLDL Cholesterol, Calc HDL Cholesterol Cholesterol/HDL Ratio Lipase SARS-CoV-2 Ag (Rapid) 06/13/20 06/13/20 06:09 07:31 WBC RBC Hgb Hct MCV MCH MCHC RDW Std Deviation RDW Coeff of Ella Plt Count MPV Immature Gran % (Auto) Neut % (Auto) Lymph % (Auto) Cata[place] % (Auto) Eos % (Auto) Baso % (Auto) Neut # (Auto) Lymph # (Auto) C[place] # (Auto) Eos # (Auto) Baso # (Auto) Immature Gran # (Auto) PT INR APTT 39.6 H PTT Ratio 1.4 Sodium Potassium Chloride Carbon Dioxide Anion Gap BUN Creatinine Est Cr Clr Drug Dosing Est GFR ( Amer) Est GFR (Non-Af Amer) BUN/Creatinine Ratio Glucose Estimat Average Glucose Hemoglobin A1c Calcium Phosphorus 4.4 Magnesium 2.3 Total Bilirubin AST ALT Alkaline Phosphatase Troponin I 0.618 H* Total Protein Albumin Globulin Albumin/Globulin Ratio Triglycerides Cholesterol LDL Cholesterol, Calc VLDL Cholesterol, Calc HDL Cholesterol Cholesterol/HDL Ratio Lipase SARS-CoV-2 Ag (Rapid) Diagnostic Findings Telemetry personally reviewed: Sinus rhythm with sinus bradycardia and pauses up to 3.5 seconds overnight. Echo 06/13/2020 personally reviewed: Preliminary review demonstrated normal LV systolic function and normal wall motion. No severe valvular stenosis or regurgitation. Formal review pending. ECGs personally reviewed: ECG 06/12/2020 at 6:02 p.m.: Sinus bradycardia 58 beats per minute. ECG 06/13/2020 at 7:20 a.m.: Sinus bradycardia 56 beats per minute. Chest x-ray 06/12/2020: No acute cardiopulmonary findings. Medications Administered Current Inpatient Medications Acetaminophen (Acetaminophen 325 Mg Tab) 650 mg PO Q4H PRN PRN Reason: Pain or Fever Stop: 07/12/20 21:37 Al Hydrox/Mg Hydrox/Simethicone (Aluminum/Magnesium Susp 30 Ml Udc) 15 ml PO Q6H PRN PRN Reason: heartburn Stop: 07/12/20 21:10 Aspirin (Aspirin 81 Mg Ectab) 81 mg PO QAM [facility] Stop: 07/13/20 08:59 Heparin Sodium/Dextrose (Heparin Sodium/Dextrose) 25,000 units in 500 mls @ 19 mls/hr IV .Q24H [facility]; Protocol Stop: 07/12/20 19:14 Last Titration: 06/13/20 01:57 Dose: 950 units/hr, 19 mls/hr Documented by: Melatonin (Melatonin 3 Mg Tab) 3 mg PO HS PRN PRN Reason: Sleep Stop: 07/13/20 05:35 Miscellaneous (Remove Nicoderm Patch) 1 ea N/A DAILY@0859 [facility] Stop: 07/13/20 08:58 Nicotine (Nicotine 21 Mg/24 Hr Tdsy) 21 [facility] Stop: 07/13/20 08:59 Nitroglycerin (Nitroglycerin Sl 0.4 Mg/Tab Tab) 0.4 mg SL UD PRN PRN Reason: Chest Pain Stop: 07/12/20 21:37 Ondansetron HCl (Ondansetron Inj 2 Mg/Ml 2 Ml Vial) 4 mg IV Q6H PRN PRN Reason: Nausea Stop: 07/12/20 21:37 Pantoprazole Sodium (Pantoprazole 40 Mg Tab) 40 mg PO DAILY TRISHA Stop: 07/13/20 08:59 PG Care Time/CCT Total # of Minutes Spent Total Time Spent with Patient: Total time spent is greater than 50% in coordination of care (as documented) at patient's floor/unit and/or counseling patient: Coding Level of Care Code 17486 Inpt Consult Level 5 Diagnoses Acute non-ST elevation myocardial infarction (NSTEMI) I21.4 Hypercholesterolemia E78.00 Bradycardia R00.1 Sleep apnea G47.30
[2020-06-13] MEDS ORDERED: MIDAZOLAM HCL 1 MG/ML 2ML VIAL ONE ×2 (11:02→11:38)
[2020-06-13] MEDS ORDERED: HEPARIN (PORCINE) 1000 UNIT/ML 10 ML (CATH LAB USE ONLY) ONE ×2 (11:02→12:22)
[2020-06-13] MEDS ORDERED: niCARdipine HCL INJ 2.5 MG/ML 10 ML AMP ONE (11:02)
[2020-06-13] MEDS ORDERED: fentaNYL citrate 100 MCG/2 ML VIAL ONE (11:02)
[2020-06-13] MEDS ORDERED: NITROGLYCERIN/D5W 100MCG/ML 20ML SYR ONE (11:03)
--- NOTE | 2020-06-13 11:08 | Pre Anesthesia Assessment ---
Date of Service June 13, 2020 Pre Sedation Assessment Vital Signs Temp Pulse Pulse Resp BP BP BP 06/13/20 09:10 62 18 145/90 H 06/13/20 09:06 55 L 06/13/20 08:15 36.5 C 52 L 18 125/71 06/13/20 05:43 53 L 17 06/13/20 03:59 36.6 C 54 L 8 L 122/70 06/13/20 00:00 67 06/12/20 23:50 36.6 C 67 18 130/71 06/12/20 22:00 36.8 C 61 18 149/89 H 06/12/20 21:46 60 06/12/20 21:38 83 06/12/20 20:42 58 L 18 177/71 H 06/12/20 19:50 69 12 172/62 H 06/12/20 19:46 83 06/12/20 17:36 36.8 C 68 18 133/93 Pulse Ox 06/13/20 09:10 96 06/13/20 09:06 06/13/20 08:15 97 06/13/20 05:43 96 06/13/20 03:59 94 06/13/20 00:00 06/12/20 23:50 97 06/12/20 22:00 95 06/12/20 21:46 06/12/20 21:38 06/12/20 20:42 98 06/12/20 19:50 98 06/12/20 19:46 06/12/20 17:36 97 Cardiovascular + bradycardic Respiratory normal respiratory effort, lungs clear to auscultation Pre-Sedation Airway Assessment Smoking Status: Current every day smoker Hx Sleep Apnea: No Short, Thick Neck: No Thyromental Distance: > or= 3.5 Finger Breadths Oral Cavity: + Chipped Teeth and + Dental Abnormalities Mallampati Class: IV ASA: ASA3 NPO Status Date of Last Intake of Fluids: 06/12/20 Time of Last Intake of Fluids: 21:00 Date of Last Intake of Solid Food: 06/12/20 Time of Last Intake of Solid Foods: 21:00 Procedure Planning Contraindications for Sedation: none Current Medications Reviewed: Yes Notes The planned sedation has been discussed with the patient. Informed Consent was obtained. I have identified the patient, determined the appropriateness of sedation and have assessed the patient immediately prior to the procedure. All medicine(s) and interventions are by my order.
--- NOTE | 2020-06-13 12:13 | Cardiac Catheterization ---
[facility] Data: Rn Labor Delivery Cardiac Status Clinical evaluation leading to the procedure CAD Presenation: Non STEMI and Unstable angina Anginal Classification: CCS IV Heart Failure: No Cardiogenic Shock within 24 Hours: No Cardiac Arrest within 24 Hours: No Imaging Studies Past 6 Months: Yes Stress Studies Past 6 Months: No Standard Exercise Test: No Stress Echocardiogram: No Stress Testing w/SPECT MPI: No Cardiac CTA: No Coronary Anatomy Dominant: Right Left Ventricular Angiography EF (%): n/a Diagnostic Physicians Name: Joseph Nunez MD Status: Elective Closure Device Percutaneous Entry Location: Radial Closure Device: Radial Band Recommendations: Management Recommendatons (as above) Cardiac Cath Procedure Full Procedure Date June 13, 2020 Pre-Procedure Diagnosis Pre-Procedure Diagnosis: Non STEMI AUC Score AUC Score: 8 Post-Procedure Diagnosis Post-Procedure Diagnosis: Severe CAD and Elevated Intracardiac Pressures Procedure(s) Performed Procedure(s) Performed: Coronary Angiography and Left Heart Cath Bullard Operator Joseph Nunez MD Mental Health Nurse(s) Arabella Estimated Blood Loss Estimated Blood Loss: < 25 ml Medication(s) Medication(s): Fentanyl, Heparin, Lidocaine 1%, Nicardipine and Versed Summary of Findings Procedures: 1. Coronary angiography 2. Left heart catheterization 3. Moderate sedation Coronary angiography: 1. Left main coronary artery: The LMCA is very short in length. No significant CAD. 2. Left anterior descending colon the LAD wraps around the apex. Ostial LAD 30%. Mid LAD 50%. Small D1. 3. Circumflex: The circumflex is a large-caliber vessel. Mid circumflex 20 to 30%. Very small OM1, OM 2. Large OM 3 proximal 40 to 50%. 4. Right coronary artery: RCA is medium in caliber and dominant. Proximal RCA 90 to 95%. Mid RCA 30%. Distal RCA 30%. PL and PDA without significant CAD. Left heart catheterization: 1. Left ventriculography was not performed. 2. Mildly elevated LVEDP; 18 mmHg. 3. Possible mild aortic stenosis. Peak to peak gradient across the aortic valve was approximately 10 mmHg. Moderate sedation: 1. Sedation start time: 11:18 AM 2. Sedation end time: 11:40 AM Procedural notes: 1. Catheterization was performed via the right radial artery. Initially, 6 Turkmen JL 3.5 diagnostic catheter was used for selective angiography of the LMCA. She developed significant spasm in the right arm. She received additional dose of nicardipine and the remainder of the catheterization was performed with 4 Turkmen diagnostic catheters. Impression: 1. Severe CAD involving proximal RCA. 2. Otherwise, mild and moderate nonobstructive CAD. 3. Mild aortic stenosis. 4. Mildly elevated left-sided filling pressure. Plan: 1. Dr. Noe of interventional cardiology was asked to review imaging and plans to perform PCI of the proximal RCA. 2. Risk factor modification and optimize medical therapy. 3. Cardiac rehab. Hemodynamics Rest Ao:: 121/55 Final Ao: 135/64 LV: 132/2/18 Recommendations Recommendations: Management Recommendatons (as above) Specimens Specimens: None Radiation Exposure (mGy) 582 mGy. Fluoro time 3.9 min. Contrast (mls) 30 ml Procedural Complication(s) None Disposition remains in lab for PCI attempt I attest to the content of the Intraoperative Record and any orders documented therein. Any exceptions are noted below. [facility] Card Cath Procedure Codes Cardiac Catheterization Procedure 1: Cardiovascular Cath Procedures: 33090 Coronaries and LHC (+/-LV) Moderate Sedation Procedure 1: Sedation/Anesthesia: 86128 Mod Sedation by the same physician;Init15 Min Child Age 5 & Up Procedure 2: Sedation/Anesthesia: 75001 Mod Sedation by the same physician; Ea [id number] Minutes PG Care Time/CCT Total # of Minutes Spent Total Time Spent with Patient: Total time spent is greater than 50% in coordination of care (as documented) at patient's floor/unit and/or counseling patient:
[2020-06-13] MEDS ORDERED: TICAGRELOR 90 MG TAB PO ONE (12:33)
--- NOTE | 2020-06-13 12:40 | Post Anesthesia Assessment ---
Date of Service June 13, 2020 Post Sedation Assessment Vital Signs Temp Pulse Pulse Resp BP BP BP 06/13/20 09:10 62 18 145/90 H 06/13/20 09:06 55 L 06/13/20 08:15 97.7 F 52 L 18 125/71 06/13/20 05:43 53 L 17 06/13/20 03:59 97.9 F 54 L 8 L 122/70 06/13/20 00:00 67 06/12/20 23:50 97.9 F 67 18 130/71 06/12/20 22:00 98.2 F 61 18 149/89 H 06/12/20 21:46 60 06/12/20 21:38 83 06/12/20 20:42 58 L 18 177/71 H 06/12/20 19:50 69 12 172/62 H 06/12/20 19:46 83 06/12/20 17:36 98.2 F 68 18 133/93 Pulse Ox 06/13/20 09:10 96 06/13/20 09:06 06/13/20 08:15 97 06/13/20 05:43 96 06/13/20 03:59 94 06/13/20 00:00 06/12/20 23:50 97 06/12/20 22:00 95 06/12/20 21:46 06/12/20 21:38 06/12/20 20:42 98 06/12/20 19:50 98 06/12/20 19:46 06/12/20 17:36 97 Recovery Score Activity: Moves 4 extremities Respiration: Deep Breath/Cough Circulation: +/-20% PreAnes Value Consciousness: Fully Awake Oxygen Saturation: O2 needed for >90% Discharge Sedation Level of Care: Fast Track Phase II Post Sedation Plan On clinical assessment, the patient appears to have tolerated the sedation without complications. Patient is recovering as anticipated. Patient will continue to be monitored by nursing and may be discharged when sedation discharge criteria are met per below protocol. Upon Completions of procedure up to 15 minutes continue every 5 minute vital signs and the P.A.R. score; then discharge to a Phase I or Fast Track to Phase II per the following guidelines: * Discharge Patient to appropriate Phase II area if PAR is 8 or greater or return to pre- procedure baseline. The post - procedure orders will be as directed. * If PAR score is less than 8 or not return to pre-procedure baseline then patient will follow Phase I monitoring till PAR is reached for Phase II. The Phase I may be done in procedure room or may call to secure a Phase I area. * If naloxone or flumazenil are used for reversal, hold in Phase I for continued monitoring from when last reversal dose was given for a minimum of 60 minutes or longer pending the nurse and/or physician discretion of patient condition before discharge to Phase II. Please call the Sedation Physician to re-evaluate and complete post-note for discharge to Phase II area. Do NOT discharge from procedure sedation or Phase 1 until post- sedation evaluation note is complete by procedure /sedation MD Sedation Discharge Instructions to be given to the patient at discharge to home.
--- NOTE | 2020-06-13 12:50 | Cardiac Catheterization ---
[facility] Data: Engineering Instructor Cardiac Status Clinical evaluation leading to the procedure CAD Presenation: Non STEMI Anginal Classification: CCS IV Heart Failure: No Cardiogenic Shock within 24 Hours: No Cardiac Arrest within 24 Hours: No Imaging Studies Past 6 Months: Yes Stress Studies Past 6 Months: No Diagnostic Physicians Name: Judah Noe MD Status: Elective Closure Device Percutaneous Entry Location: Radial Closure Device: Radial Band Recommendations: PCI without planned CABG PCI Indication: PCI for high risk Non-JONATAN Lesion Segment Name: Proximal to mid RCA Culprit Artery: Yes Stenosis Prior to Rx (%): 90 Chronic Total Occlusion: No IVUS: No FFR: No Pre-Procedure JOVANI Flow: 3 Previously Treated Lesion: No Lesion Complexity: Non-High/Non-C Lesion Length (mm): 12 Thrombus Present: Yes Bifurcation Lesion: No Guidewire Across Lesion: Stenosis Post-Procedure (%): 0 Post-Procedure JOVANI Flow: 3 Devices(s) Deployed: Yes Yes Intraprocedure Events Significant Disection: No Perforation: No Cardiac Cath Procedure Full Procedure Date June 13, 2020 Pre-Procedure Diagnosis Pre-Procedure Diagnosis: Non STEMI AUC Score AUC Score: 8 Post-Procedure Diagnosis Post-Procedure Diagnosis: Severe CAD and Successful PCI Procedure(s) Performed Procedure(s) Performed: Coronary Angiography and Drug Eluting Stent Tin Plater Judah Noe MD Reflesher(s) Arabella Estimated Blood Loss Estimated Blood Loss: < 25 ml Medication(s) Medication(s): Fentanyl, Heparin, Lidocaine 1%, Nicardipine and Versed Medication(s): Ticagrelor Summary of Findings Indication: NSTEMI Access: 6 Fr right radial artery Catheters: 5 Fr JR4 guide Findings: For full details of patient's coronary angiography please see cath report dictated by Dr. Nunez. Briefly, patient found to have severe single vessel disease with a proximal RCA 90% stenosis. Decision to proceed with PCI. -- PCI -- Antithrombotic therapy: Heparin, ticagrelor Procedure: RCA cannulated with JR4 guide BMW wire passed across lesion into distal vessel Proximal RCA lesion predilated with 2.0 compliant balloon Dilated lesion stented with 2.5 x 18 mm Michael drug-eluting Stent post-dilated with 2.75 noncompliant balloon IC vasodilators administered for spasm Post procedure JOVANI 3 flow, stent well expanded with minimal residual stenosis and no apparent cardiac complications. Arterial Closure: TR band Summary: 1. Severe single vessel coronary artery disease -90% proximal RCA 2. Successful PCI of proximal to mid RCA with single drug-eluting stent (2.5 x 18 mm Michael; postdilated with 2.75 NC) Recommendations: To PCU for continued monitoring Loaded with ticagrelor 180 mg in Engineering Instructor Continue dual-antiplatelet therapy for at least 1 year Continue statin, and ASCVD risk factor modification Consult cardiac Rehab Hemodynamics Rest Ao:: 127/69/91 Final Ao: 146/76/106 LV: -- Recommendations Recommendations: PCI without planned CABG Specimens Specimens: None Radiation Exposure (mGy) 1856 Contrast (mls) 60 Fluids (cc crystalloids) Fluids (cc crystalloids): 100 Drains Drains: None Anesthesia Moderate Procedural Complication(s) None Disposition PCU I attest to the content of the Intraoperative Record and any orders documented therein. Any exceptions are noted below. [facility] Card Cath Procedure Codes Moderate Sedation Procedure 1: Sedation/Anesthesia: 36581 Mod Sedation by the same physician; Ea [id number] Minutes Stenting Procedure 1: Cardiovascular Stent Procedures: 21787 Perc transcatheter placement of intracoronary stent(s), with ang PG Care Time/CCT Total # of Minutes Spent Total Time Spent with Patient: Total time spent is greater than 50% in coordination of care (as documented) at patient's floor/unit and/or counseling patient:
[2020-06-13] MEDS ORDERED: [UNRECOGNIZED DRUG - REMARK] ONE (13:15)
[2020-06-13] MEDS: SODIUM CHLORIDE 0.9% 1000ML 1,000 ML IV SCH ×2 (13:25→23:46)
--- NOTE | 2020-06-13 14:01 | Hospitalist Progress Note ---
Date of Service June 13, 2020 Assessment & Plan (1) Acute non-ST elevation myocardial infarction (NSTEMI): 54yo C F with h/o HLP, tobacco abuse, obesity here with CP for 8 hrs. with negative EKG changes and mild trop elevation 0.341 and noted to have elevated bp in ER to 190/84. NSTEMI -s/p LHC with RCA stent placement. -Echo results pending -Started on dual statin/dual platelet/ACEi/B paola -Nitro PRN chest pain Bradycardia -baseline lower HR. dropped further during sleep with apneic spells. -No indication for PPM. -will use cpap at night. Sleep apnea -listed in outpatient chart -will need formal testing as outpatient -check nocturnal pulse-ox tonight. -cpap at night. HLD -statin -discuss dietary changes Tobacco dependence - >1ppd -nicotine patch while inpatient -further discuss smoking cessation and options. Glucose intolerance -HgbA1C 5.7 -will further discuss lifestyle changes. GERD -Protonix 40mg po daily -Maalox PRN Depression -On remeron -dose of xanax ordered for anxious spell. follow. F/E/N - [place]ock. Heart healthy diet, Ppx - low risk for DVT Code- Full (2) Hypercholesterolemia: (3) Sleep apnea: (4) Tobacco dependency: (5) GERD (gastroesophageal reflux disease): (6) Bradycardia: Admission and Anticipated Discharge Date Admission Date: June 12, 2020 Subjective Underwent LHC with stent placement no further neck pain. feels like she can't take deep breaths. no chest pain. no bleeding from cath site. no focal weakness. Physical Exam Constitutional: WD/WN, vitals as above Respiratory: normal respiratory effort, lungs clear to auscultation Cardiovascular: RRR, no murmur, no edema Psychiatric: Orientation: alert and oriented x 3 anxious Results & Data Results & Data ([facility]) Vital Signs (Past 12 Hours) Vital Signs Temp Pulse Pulse Pulse Resp BP BP 06/13/20 13:13 36.4 C L 51 L 20 120/82 06/13/20 13:00 54 L 18 153/78 H 06/13/20 12:42 64 18 158/80 H 06/13/20 09:10 62 18 145/90 H 06/13/20 09:06 55 L 06/13/20 08:15 36.5 C 52 L 18 125/71 06/13/20 05:43 53 L 17 06/13/20 03:59 36.6 C 54 L 8 L 122/70 Pulse Ox 06/13/20 13:13 97 06/13/20 13:00 96 06/13/20 12:42 98 06/13/20 09:10 96 06/13/20 09:06 06/13/20 08:15 97 06/13/20 05:43 96 06/13/20 03:59 94 (1) GERD (gastroesophageal reflux disease) Esophagitis presence: esophagitis presence not specified Qualified Code(s): K21.9 - Gastro-esophageal reflux disease without esophagitis
--- NOTE | 2020-06-13 14:31 | XCELERA ---
[id number]
[2020-06-13] MEDS: NICOTINE 21 MG/24 HR TDSY TD SCH (14:50)
[2020-06-13] MEDS ORDERED: ALPRAZolam 0.25 MG TABLET PO ONE (15:01)
[2020-06-13] MEDS: ASPIRIN 81 MG ECTAB PO SCH (15:37)
[2020-06-13] MEDS: PANTOprazole 40 MG TAB PO SCH (15:37)
[2020-06-13] MEDS: METOPROLOL TARTRATE 25 MG TAB PO SCH (20:58)
[2020-06-13] MEDS: TICAGRELOR 90 MG TAB PO SCH (20:59)
[2020-06-13] MEDS ORDERED: ATORVASTATIN 40 MG TAB PO SCH (21:00)
[2020-06-13] MEDS ORDERED: MIRTAZAPINE TAB 15 MG TAB PO SCH (21:20)
--- NOTE | 2020-06-13 22:15 | Electrocardiogram Report ---
Test Reason : Blood Pressure : / mmHG Vent. Rate : 058 BPM Atrial Rate : 058 BPM P-R Int : 126 ms QRS Dur : 088 ms QT Int : 440 ms P-R-T Axes : 034 013 026 degrees QTc Int : 431 ms Sinus bradycardia Otherwise normal ECG When compared with ECG of 06-APR-2015 22:33, No significant change was found Confirmed by Joseph Nunez ([id number]) on 06/13/2020 10:15:06 PM Referred By: REFERRED SELF Confirmed By:Joseph Nunez
--- NOTE | 2020-06-14 06:19 | Electrocardiogram Report ---
Test Reason : Blood Pressure : / mmHG Vent. Rate : 056 BPM Atrial Rate : 056 BPM P-R Int : 130 ms QRS Dur : 086 ms QT Int : 468 ms P-R-T Axes : 055 045 049 degrees QTc Int : 451 ms Sinus bradycardia When compared with ECG of 12-JUN-2020 18:02, No significant change was found Confirmed by Joseph Nunez ([id number]) on 06/14/2020 6:19:20 AM Referred By: REFERRED SELF Confirmed By:Joseph Nunez
--- NOTE | 2020-06-14 06:50 | Electrocardiogram Report ---
Test Reason : Blood Pressure : / mmHG Vent. Rate : 050 BPM Atrial Rate : 050 BPM P-R Int : 130 ms QRS Dur : 078 ms QT Int : 464 ms P-R-T Axes : 043 013 036 degrees QTc Int : 423 ms Sinus bradycardia Low voltage QRS Cannot rule out Anterior infarct Abnormal ECG When compared with ECG of 13-JUN-2020 07:20, No significant change was found Confirmed by Joseph Nunez ([id number]) on 06/14/2020 6:49:35 AM Referred By: REFERRED SELF Confirmed By:Joseph Nunez
[2020-06-14 08:31] LABS: Albumin Globulin Ratio 0.8 (0.9-2); Albumin Level 2.7 gm/dl (3.4-5.0); BUN Creatinine Ratio 13.1 (10-20); Bilirubin,Total 0.4 mg/dl (0.2-1); Calcium 8.8 mg/dl (8.5-10.1); Creatinine Clr Calc Pharmacy 79.5 ml/min; Est GFR (Non-African American) 77.7; Globulin 3.3 gm/dl (2.5-4.0); Potassium 4.3 mmol/L (3.5-5.1)
[2020-06-14] MEDS ORDERED: lisinopril 5 MG TAB PO SCH (09:00)
[2020-06-14] MEDS: METOPROLOL TARTRATE 25 MG TAB PO SCH (09:52)
[2020-06-14] MEDS: SODIUM CHLORIDE 0.9% 1000ML 1,000 ML IV SCH (09:52)
[2020-06-14] MEDS: TICAGRELOR 90 MG TAB PO SCH (10:01)
[2020-06-14] MEDS: NICOTINE 21 MG/24 HR TDSY TD SCH (10:02)
[2020-06-14] MEDS: ASPIRIN 81 MG ECTAB PO SCH (10:21)
[2020-06-14] MEDS: PANTOprazole 40 MG TAB PO SCH (10:22)
--- NOTE | 2020-06-14 10:52 | Cardiology Progress Note ---
Date of Service June 14, 2020 Assessment & Plan (1) Acute non-ST elevation myocardial infarction (NSTEMI): (2) Hypercholesterolemia: (3) Bradycardia: (4) Sleep apnea: ASSESSMENT/PLAN: 1. NSTEMI: Her symptoms were atypical but she was found have severe proximal RCA CAD. She underwent PCI. Recommend cardiac rehab. 2. CAD s/p prox to mid RCA PCI: She tolerated the procedure well. Continue aspirin 81 mg daily indefinitely. Continue Brilinta for at least 1 year. Continue NORAH-inhibitor. Recommend against beta-paola given bradycardia. Continue high-intensity statin therapy which was initiated during this hospital stay. Please prescribe nitroglycerin to be used p.r.n. chest discomfort on discharge. 3. Hypercholesterolemia: LDL significantly elevated. Continue high-intensity statin therapy. 4. Sleep apnea: Recommend sleep study and treatment as appropriate. Discussed with patient. 5. Bradycardia/sinus pause: The majority of her sinus pauses occur overnight. She does have some during the day, possibly during naps as she has been napping on and off. When awake and speaking, her heart rate has been appropriate. She has been completely asymptomatic without symptoms suggestive of sinus pauses while awake. Recommend sleep study which will also help with correlation of her pauses and apneic episodes. There is no indication for pacemaker at this time. Case discussed with electrophysiology. Discussed with patient in detail. She was offered electrophysiology consultation but when she was notified that they were not available this morning, but rather this afternoon, she wished to be discharged. 6. Disposition: Follow-up with Cardiology in 1-2 weeks. Patient care discussed with Dr. Sheppard of the primary hospitalist service. (5) CAD (coronary artery disease): (6) S/P coronary artery stent placement: Admission and Anticipated Discharge Date Admission Date: June 12, 2020 Subjective Patient was seen earlier this morning. Yesterday, she underwent cardiac catheterization was found to have severe proximal RCA CAD. She underwent PCI without known complication. She has not had any chest pain. She has not had any recurrent neck pain. Her left arm continues to be sore with no improvement following PCI. She denies shortness of breath, syncope, near-syncope, palpitations, or edema. She denies bleeding. She has ambulated without symptoms. Overnight, she was noted to have sinus pauses of no more than 4 seconds, typically closer to 3 seconds. She was noted to have this her initial hospital night as well, with less issues during daylight hours. She had some episodes yesterday afternoon but after sedation, she was groggy and napped on and off. She had some episodes this morning between 8 and 8:30 a.m.. She is not sure if she was awake during that time. She was awake earlier but admits that she may have fallen asleep briefly. She does not recall. She insists that she has not had any syncope, near-syncope, lightheadedness, or other symptoms concerning for significant pauses while awake. Overnight, pacer pads were placed by the hospitalist service. She received 1 dose of metoprolol 25 mg yesterday evening. Review of systems: As above. Physical Exam Physical Exam: Gen.: No acute distress. Alert and oriented. HEENT: Anicteric sclera. Neck: No JVD. Cardiac: No ventricular heave. Regular. Normal S1-S2. 1/6 systolic murmur. No rubs, or gallops. Pulmonary: Clear to auscultation bilaterally without wheezes, rales, or rhonchi. Abdomen: Soft, nontender, nondistended, with normoactive bowel sounds. No bruits noted. Extremities: 2+ radial pulses bilaterally. Right radial cath site is clean, dry, and intact without erythema or discharge. 2+ posterior tibialis pulses bilaterally. No edema or cyanosis. Psychiatric: Affect appears appropriate. Results & Data ([facility]) Vital Signs (Past 12 Hours) Vital Signs Temp Pulse Pulse Resp BP Pulse Ox Pulse Ox 06/14/20 07:16 36.6 C 57 L 16 136/84 97 06/14/20 04:14 36.4 C L 49 L 134/83 95 06/14/20 03:34 60 96 06/14/20 00:51 37.0 C 65 117/75 94 Laboratory Results Laboratory Results - last 24 hr 06/13/20 06/13/20 06/13/20 11:24 12:19 13:45 Activ Coag Time Kaolin 120 224 H Sodium Potassium Chloride Carbon Dioxide Anion Gap BUN Creatinine Est Cr Clr Drug Dosing Est GFR ( Amer) Est GFR (Non-Af Amer) BUN/Creatinine Ratio Glucose Calcium Total Bilirubin AST ALT Alkaline Phosphatase Troponin I 0.444 H* Total Protein Albumin Globulin Albumin/Globulin Ratio 06/14/20 07:33 Activ Coag Time Kaolin Sodium 145 Potassium 4.3 D Chloride 113 H Carbon Dioxide 28 Anion Gap 4.0 BUN 11 Creatinine 0.84 Est Cr Clr Drug Dosing 79.5 Est GFR ( Amer) 90.0 Est GFR (Non-Af Amer) 77.7 BUN/Creatinine Ratio 13.1 Glucose 98 Calcium 8.8 Total Bilirubin 0.4 AST 24 ALT 37 Alkaline Phosphatase 89 Troponin I Total Protein 6.0 L Albumin 2.7 L Globulin 3.3 Albumin/Globulin Ratio 0.8 L Diagnostic Findings Telemetry personally reviewed: Sinus rhythm. Sinus pauses of 3-4 seconds, mostly overnight. ECG personally reviewed: ECG 06/14/2020 at 2:30 a.m.: Sinus bradycardia 30 beats per minute. ECG 06/14/2020 at 2:37 a.m.: Sinus bradycardia with PACs 40 beats per minute. ECG 06/14/2020 at 6:55 a.m.: NSR 61 beats per minute. Medications Administered Current Inpatient Medications Acetaminophen (Acetaminophen 325 Mg Tab) 650 mg PO Q4H PRN PRN Reason: Pain or Fever Stop: 07/12/20 21:37 Al Hydrox/Mg Hydrox/Simethicone (Aluminum/Magnesium Susp 30 Ml Udc) 15 ml PO Q6H PRN PRN Reason: heartburn Stop: 07/12/20 21:10 Aspirin (Aspirin 81 Mg Ectab) 81 mg PO QAM [facility] Stop: 07/13/20 08:59 Last Admin: 06/14/20 10:21 Dose: 81 mg Documented by: Atorvastatin Calcium (Atorvastatin 40 Mg Tab) 80 mg PO HS [facility] Stop: 07/13/20 20:59 Last Admin: 06/13/20 20:58 Dose: 80 mg Documented by: Lisinopril (Lisinopril 5 Mg Tab) 5 mg PO QAM [facility] Stop: 07/14/20 08:59 Last Admin: 06/14/20 10:01 Dose: 5 mg Documented by: Melatonin (Melatonin 3 Mg Tab) 3 mg PO HS PRN PRN Reason: Sleep Stop: 07/13/20 05:35 Miscellaneous (Remove Nicoderm Patch) 1 ea N/A DAILY@0859 [facility] Stop: 07/13/20 08:58 Last Admin: 06/14/20 10:02 Dose: 1 ea Documented by: Nicotine (Nicotine 21 Mg/24 Hr Tdsy) 21 mg TD QAM [facility] Stop: 07/13/20 08:59 Last Admin: 06/14/20 10:02 Dose: Not Given Documented by: Nitroglycerin (Nitroglycerin Sl 0.4 Mg/Tab Tab) 0.4 mg SL UD PRN PRN Reason: Chest Pain Stop: 07/12/20 21:37 Ondansetron HCl (Ondansetron Inj 2 Mg/Ml 2 Ml Vial) 4 mg IV Q6H PRN PRN Reason: Nausea Stop: 07/12/20 21:37 Pantoprazole Sodium (Pantoprazole 40 Mg Tab) 40 mg PO DAILY [facility] Stop: 07/13/20 08:59 Last Admin: 06/14/20 10:22 Dose: 40 mg Documented by: Ticagrelor (Ticagrelor 90 Mg Tab) 90 mg PO BID [facility] Stop: 07/13/20 23:00 Last Admin: 06/14/20 10:01 Dose: 90 mg Documented by: PG Care Time/CCT Total # of Minutes Spent Total Time Spent with Patient: Total time spent is greater than 50% in coordination of care (as documented) at patient's floor/unit and/or counseling patient: Coding Level of Care Code 86226 Subseq Hosp Care Lvl 3 Diagnoses Acute non-ST elevation myocardial infarction (NSTEMI) I21.4 Hypercholesterolemia E78.00 Bradycardia R00.1 Sleep apnea G47.30 CAD (coronary artery disease) I25.10 S/P coronary artery stent placement Z95.5
--- NOTE | 2020-06-14 21:36 | Discharge Summary ---
Date of Service June 14, 2020 Admission HPI Per Admitting Provider Marla Kearns is a 54yo C female with history of HLP, tobacco use presenting with chest pain. Patient reports severe heart burn and regurgitation last evening. She woke up this morning with a sore throat and pain in her upper chest. She felt restless throughout the day and couldn't relax. Around 13:00 she developed discomfort in her chest and down her left arm. Pain 6-7/10 in severity, squeezing discomfort with associated diaphoresis, lightheadedness, dizziness and SOB. Patient is active and independent. 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 She denies chest pain or SOB that occurs with activity or exertion. She has never had a heart attack in the past. No history of CHF, arrhythmia. Patient does not routinely see a physician. On arrival to the ER she was found to be afebrile, Hypertensive otherwise no complaints. No chest pain at this time. ER Course: ASA 162mg, Heparin bolus and drip, Nitro paste x 1 inch Principal Diagnosis NSTEMI Discharge Exam Constitutional WD/WN, vitals as above Respiratory normal respiratory effort, lungs clear to auscultation Cardiovascular RRR, no murmur, no edema Psychiatric Orientation: alert and oriented x 3 Discharge Data Allergies Allergy/AdvReac Type Severity Reaction Status Date / Time No Known Allergies Allergy Verified 06/12/20 18:40 Consultations 06/12/20 19:14 ED Decision to Admit Stat 06/12/20 21:38 Consult Cardiology Routine Consult Case Management - Discharge Planning Routine 06/13/20 13:02 Consult Cardiac Rehabilitation Routine Procedures Performed Operation Date: 06/13/20 10:00 Actual Procedures s Cath, Left with Cors and Vent - Joseph Nunez MD s Cineradiography w/Routine Exam - Joseph Nunez MD p Drug Eluting Stent SGl Vessel - Markos Noe MD Ordered Studies 06/13/20 10:59 CL Cath Imgs for PACS use only Routine Hospital Course (1) Acute non-ST elevation myocardial infarction (NSTEMI): 54yo C F with h/o HLP, tobacco abuse, obesity here with CP for 8 hrs. with negative EKG changes and mild trop elevation 0.341 and noted to have elevated bp in ER to 190/84. Kept on PCU. Cardiology consulted. See discharge note from cardiology as below. 1. NSTEMI: Her symptoms were atypical but she was found have severe proximal RCA CAD. She underwent PCI. Recommend cardiac rehab. 2. CAD s/p prox to mid RCA PCI: She tolerated the procedure well. Continue aspirin 81 mg daily indefinitely. Continue Brilinta for at least 1 year. Continue NORAH-inhibitor. Recommend against beta-paola given bradycardia. Continue high-intensity statin therapy which was initiated during this hospital stay. Please prescribe nitroglycerin to be used p.r.n. chest discomfort on discharge. 3. Hypercholesterolemia: LDL significantly elevated. Continue high-intensity statin therapy. 4. Sleep apnea: Recommend sleep study and treatment as appropriate. Discussed with patient. 5. Bradycardia/sinus pause: The majority of her sinus pauses occur overnight. She does have some during the day, possibly during naps as she has been napping on and off. When awake and speaking, her heart rate has been appropriate. She has been completely asymptomatic without symptoms suggestive of sinus pauses while awake. Recommend sleep study which will also help with correlation of her pauses and apneic episodes. There is no indication for pacemaker at this time. Case discussed with electrophysiology. Discussed with patient in detail. She was offered electrophysiology consultation but when she was notified that they were not available this morning, but rather this afternoon, she wished to be discharged. 6. Disposition: Follow-up with Cardiology in 1-2 weeks. Tobacco dependence - >1ppd -nicotine patch while inpatient -motivated to continue nicotine patches on discharge. Glucose intolerance -HgbA1C 5.7 -further outpatient lifestyle changes. GERD -Held PPI. to take H2 paola at home. Depression -On remeron -2 tablet of xanax rx sent to pharmacy as per request. (2) Hypercholesterolemia: (3) Sleep apnea: (4) Tobacco dependency: (5) GERD (gastroesophageal reflux disease): (6) Bradycardia: Total Time Total Time Spent Total Time Spent (In Minutes): 35 min Discharge Plan Discharge Items Patient Disposition: Home - Self-Care Reason For Visit: CHEST PAIN, ELEVATED TROPONIN Discharge Diagnosis: NSTEMI Activity: Per Instructions section Lifting: Wait until after follow-up appointment Bathing: No limitations Exercise/Sports: None Driving/Machine Use: Until after follow up appointment Non-emergency contact: Primary Care Provider Call non-emergency contact if: you have any medication questions, your symptoms worsen and your pain is not controlled Follow-up/Referrals: Yvonne Manzano MD [Primary Care Provider] - 06/18/20 9:20 am Diet: Heart Healthy and Low Sodium (2gm) Addtl Attending Provider Instructions: ACTIVITY RECOMMENDATIONS: Excess manipulation of the wrist should be avoided for the next 24-48 hours. * No lifting over 2 pounds (approximately a 1/2 gallon of milk) with the utilized arm for 24 hours. * No strenuous activity such as bowling or tennis for 3 days. * Keep the site of the procedure covered with a bandage for 24 hours. *You may shower the day after the procedure. Do not take a tub bath or submerge the puncture site in water for the next 3 days. *Do not operate any motorized equipment for 3 days. SPECIAL CARE INSTRUCTIONS: The site may be slightly bruised and sore following your procedure. Should any of the following occur, contact the Dr. who performed your procedure. 1. Redness/inflammation, swelling, chills, or fever, or colored drainage at procedure site within 3-7 days after your procedure. 2. Coldness, discoloration, ongoing numbness, severe pain, or swelling. Expect mild tingling of hand and tenderness at the puncture site for up to three days. If this persists beyond three days, or other symptoms develop, notify the Dr. who performed your procedure. BLEEDING: If the procedure site on your wrist begins to bleed, do not panic 1. Place 1 or 2 fingers firmly just slightly above the insertion site to stop the bleeding. You may be able to feel your pulse as you hold pressure. 2. Lift your finger after 5 minutes to see if the bleeding has stopped. 3. Once the bleeding has stopped, gently wipe the wrist area clean with a bandage. * If the bleeding from your wrist does not stop after 10 minutes, or if there is a large amount of bleeding or spurting, call 911 (do not drive yourself to the hospital). SKIN IRRITATION: * You may experience some redness and/or swelling in the area where radiation was administered. If any skin irritation occurs, please contact your family physician. FOLLOW UP VISIT: 1. Follow up in Dr. Nunez's (Cardiology) office in 1-2 weeks. Please contact your primary care physician for follow up appointment You will need to have sleep study set up Please follow up on getting your health insurance set up so when needed a CPAP can be arranged. Pending Studies at Discharge: No Stand-Alone Forms: [facility] Smoking Cessation Medications and DC Order Prescriptions: New atorvastatin 40 mg Tablet 80 mg PO HS Qty: 60 RF: 0 aspirin 81 mg Tablet,Delayed Release (Dr/Ec) 81 mg PO QAM Qty: 30 RF: 0 nicotine [Nicoderm CQ] 21 mg/24 hr Patch 24 Hour 21 mg transdermal QAM 30 Days RF: 0 clopidogrel [Plavix] 75 mg tablet 75 mg PO DAILY Qty: 30 RF: 0 lisinopril [Zestril] 5 mg Tablet 5 mg PO QAM Qty: 30 RF: 0 alprazolam [Xanax] 0.25 mg tablet 0.25 mg PO DAILY Qty: 2 RF: 0 nitroglycerin 0.4 mg tablet, sublingual 0.4 mg sublingual Q5M Qty: 7 RF: 0 Discontinued omeprazole 20 mg capsule,delayed release(DR/EC) 20 mg PO DAILY PRN (Reason: HEARTBURN/INDIGESTION) Qty: 30 RF: 0 magnesium 250 mg Tablet 0 mg PO DAILY RF: 0 red yeast rice 600 mg Tablet 600 mg PO DAILY RF: 0 Discharge Orders: Discharge Order (Routine); Ordered 06/14/20 Ordered By: Mary Beth Sheppard Admission Data Admit Date/Time: 06/12/20 20:09 Attending Provider: Mary Beth Sheppard Admit Provider: Ivana Will Primary Care Provider: Yvonne Manzano Other Providers: Ivana Will ; Joseph Nunez Other Interventions: Discharge Summary Assessment (RN) Last Done: 06/14/20 12:20
--- NOTE | 2020-06-15 05:39 | Electrocardiogram Report ---
Test Reason : Blood Pressure : / mmHG Vent. Rate : 040 BPM Atrial Rate : 040 BPM P-R Int : 132 ms QRS Dur : 078 ms QT Int : 508 ms P-R-T Axes : 051 035 030 degrees QTc Int : 414 ms Poor data quality, interpretation may be adversely affected Marked sinus bradycardia with Premature atrial complexes Low voltage QRS Abnormal ECG When compared with ECG of 13-JUN-2020 13:20, Premature atrial complexes are now Present Minimal criteria for Anterior infarct are no longer Present Confirmed by Joseph Nunez ([id number]) on 06/15/2020 5:39:20 AM Referred By: REFERRED SELF Confirmed By:Joseph Nunez
--- NOTE | 2020-06-15 05:40 | Electrocardiogram Report ---
Test Reason : Blood Pressure : / mmHG Vent. Rate : 030 BPM Atrial Rate : 030 BPM P-R Int : 128 ms QRS Dur : 078 ms QT Int : 488 ms P-R-T Axes : 046 035 028 degrees QTc Int : 344 ms Marked sinus bradycardia with marked sinus arrhythmia Low voltage QRS Abnormal ECG When compared with ECG of 14-JUN-2020 02:37, Premature atrial complexes are no longer Present QT has shortened Confirmed by Joseph Nunez ([id number]) on 06/15/2020 5:39:35 AM Referred By: REFERRED SELF Confirmed By:Joseph Nunez
--- NOTE | 2020-06-15 05:43 | Electrocardiogram Report ---
Test Reason : Blood Pressure : / mmHG Vent. Rate : 061 BPM Atrial Rate : 061 BPM P-R Int : 132 ms QRS Dur : 076 ms QT Int : 442 ms P-R-T Axes : 051 044 047 degrees QTc Int : 444 ms Normal sinus rhythm Low voltage QRS Borderline ECG When compared with ECG of 13-JUN-2020 13:20, HR has increased by 31 bpm Confirmed by Joseph Nunez ([id number]) on 06/15/2020 5:43:24 AM Referred By: REFERRED SELF Confirmed By:Joseph Nunez
== END 2020-06-14 13:55 | disposition home or self-care (01) | DRG 247 ==
LOC: ED 17:31 → SUATTDRO 20:09 → 2S 20:09

== ENCOUNTER 2023-10-27 17:13 | Observation (INO) ==
--- NOTE | 2023-10-27 17:44 | Emergency Department Note ---
Impression & Plan Precordial chest pain, History of LA (myocardial infarction), SOB (shortness of breath), Leukocytosis ED Provider Note NAME: OLIVERIO MCFARLAND AGE: 58 SEX: F : 1965 ARRIVES VIA: Walk-In INFORMANT: [Patient] ED PROVIDER(S): [Moshe Lewis MD] CHIEF COMPLAINT: Chest pain HISTORY OF PRESENT ILLNESS: The patient is a 58-year-old female who states she has had 5 days of chest pain and discomfort. She has been dizzy. She has felt more short of breath. She states that she seems worse when she tries to lie down or sleep. There have been no times when exertion made things worse. The patient has taken 2 nitroglycerin over the last 5 days and when she takes 1, it does seem to help. The patient does have a history of LA. She states that she just recently started using CPAP and she wonders if this is somehow contributing to how she is feeling. Because of her chest symptoms, because her history of LA, she presents to the ER for evaluation. PMHx/PSHx/Social Hx: See Below PHYSICAL EXAM: GENERAL: Patient is in no acute distress. HEENT: No acute trauma, normocephalic atraumatic, mucous membranes moist, no nasal congestion. NECK: No stridor, no adenopathy, no meningismus, trachea is midline. LUNGS: Clear to auscultation bilaterally, no wheeze, no rhonchi, breath sounds equal. HEART: Subtle systolic murmur heard best at the right sternal border. Regular rate and rhythm. Chest: Tender across the anterior sternal chest wall. ABDOMEN: Soft, nontender, no peritonitis. EXTREMITIES: No cyanosis, full range of motion of all the joints without pain or difficulty. Subtle bilateral pedal edema. NEUROLOGIC: Oriented x 3, no acute motor or sensory deficits, no focal weakness. SKIN: No jaundice, no diaphoresis. DIFFERENTIAL DIAGNOSIS: Cardiac ischemia, musculoskeletal pain, fluid overload, anemia, LA, electrolyte imbalance, viral illness, among others. EMERGENCY DEPARTMENT PROCEDURES: MEDICAL DECISION MAKING: There is a slight leukocytosis, this could be consistent with infection or just the stress of her current situation. There was a normal hemoglobin and platelet count. No coagulopathy. No renal failure or significant electrolyte abnormality. No concerning liver enzyme elevation. The patient appeared to be in a euthyroid state. ECG showed a sinus rhythm, no acute ST elevation. Cardiac enzyme testing x 1 was not consistent with acute cardiac injury. Chest x-ray did not show mediastinal widening, pneumonia or pneumothorax. On exam, patient was not febrile or hypoxic. She did have some soreness to palpate across the anterior sternal chest wall. Patient has a history of LA, she presents with precordial chest pain and dyspnea. She did use nitroglycerin twice in the last several days, the nitroglycerin seemed to help her symptoms. Given her history I am concerned about the possibility of cardiac ischemia. Her pain certainly may be musculoskeletal but, with her history, I do think further cardiac workup is warranted. I spoke with the patient and case management, the on-call hospitalist was consulted. Prior/Outside records/notes reviewed: None ECG per my interpretation: Indication was chest pain. The ECG shows a normal sinus rhythm with a rate of 87. There is no acute ST elevation, no PVCs. The QTc is 440. Continuous Cardiac Monitoring per my interpretation: An order was placed for continuous cardiac monitoring. The monitor shows a rate of 97 with normal sinus rhythm. Imaging/x-ray results per my interpretation: Chest x-ray does not show mediastinal widening, pneumonia or pneumothorax. No CHF. Chronic Medical/Social conditions affecting care: History of previous LA Care/Management discussed with: Case management, the on-call hospitalist. Level of care consideration(s): After review of the information above and other included data: --I believe the patient requires escalation of care to admission DISPOSITION: Admission Past Med/Surg History Medical History History of non-ST elevation myocardial infarction (NSTEMI) May 2020 > [facility] > 1 stent On anticoagulant therapy plavix daily History of COVID-19 diagnosed 07/15/21 @ [facility] prior to scheduled procedure--asymptomatic--no symptoms now Anxiety Depression History of myocardial infarction 05/2020 Sleep apnea CPAP CAD (coronary artery disease) Follows with Dr. Nunez Hypercholesterolemia Obesity (BMI 30-39.9) Tobacco dependency GERD (gastroesophageal reflux disease) Surgical History History of colonoscopy History of esophagogastroduodenoscopy (EGD) History of surgery of head plastic surgery following injury to head at age 1 History of tonsillectomy History of cardiac catheterization 05/2020 - [place] - [place] - [facility] x 1 S/P coronary artery stent placement History of section x1 Family History Other Coronary heart disease Dyslipidemia No family history of adverse response to anesthesia Denies family history of Ovarian cancer Prostate cancer Myocardial infarction Breast cancer Colorectal cancer Social History Smoking Status: Current every day smoker Tobacco Type: Cigarettes Age Started Using Tobacco: 18; Age Quit Using Tobacco: 54; Cigarettes Per Day: 5-20; Second Hand Exposure: No; Do You Dip or Chew Tobacco: No; Hx Alcohol Use: Yes Alcohol type: beer Alcohol Intake Frequency: 2-4 x/Month Hx Substance Use: No Preferred Language: Georgian Communication Ability: Effective Visual Impairment: No Limitations Hearing Ability: Normal [employer] Certified Internetwork Expert Required: No Beliefs That Will Affect Care: None marital status: Current Living Situation: Spouse Current Living Situation Comment: Lives at home, Mothers primary caregiver current occupational status: employed Feels Safe at Home: Yes Childhood Exposure to Second-Hand Smoke: Yes Diet: regular Dental Care, Regularly: No Physical Activity Frequency: Does not Exercise Seatbelt Use: always Sunscreen Use: No Assistive Devices: CPAP Allergies Allergies Allergy/AdvReac Type Severity Reaction Status Date / Time No Known Allergies Allergy Verified 10/27/23 19:14 Home Meds Home Medications Medication Instructions Recorded Confirmed albuterol sulfate 90 mcg/actuation 2 puff inhalation .Q4-6HR PRN 10/27/23 10/27/23 aerosol inhaler (ProAir HFA) shortness of breath or wheezing clopidogrel 75 mg tablet 75 mg PO QPM 10/27/23 10/27/23 Previous Rx's Medication Instructions Recorded alprazolam 0.5 mg tablet 0.5 mg PO BID PRN anxiety #60 tabs 03/10/22 aspirin 81 mg tablet,delayed 81 mg PO QAM #30 tabs 03/26/22 release lisinopril 5 mg tablet (Zestril) 5 mg PO QAM #30 tabs 11/19/22 nitroglycerin 0.4 mg sublingual 0.4 mg sublingual Q5M PRN Chest 11/21/22 tablet Pain #30 tabs pantoprazole 40 mg tablet,delayed 40 mg PO BID GERD #60 tabs 10/09/23 release rosuvastatin 40 mg tablet 40 mg PO DAILY #30 tabs 10/09/23 alirocumab 75 mg/mL subcutaneous 75 mg subcut Q14D #2 mL 10/16/23 pen injector (Praluent Pen) Results & Data (ED) Vital Signs Vital Signs - 24 hr 10/27/23 17:17 10/27/23 18:18 10/27/23 18:20 Temperature 37.1 C Temperature Source Temporal Artery Scan Pulse Rate 97 H 92 H 87 Pulse Rate from SpO2 Sensor Respiratory Rate 18 22 Respiratory Effort / Characteristics Non-Labored Spontaneous Respiratory Depth Normal Blood Pressure 143/90 H Blood Pressure Mean 107 Blood Pressure Position Sitting Pulse Oximetry 97 Oxygen Delivery Method Room Air Sepsis Recent Fever Within 48 Hours No Sepsis New/Unexplained Change in Mental Status N/A Sepsis Action Taken by Nursing No Action Required 10/27/23 18:30 10/27/23 19:00 10/27/23 19:30 Temperature Temperature Source Pulse Rate 79 73 Pulse Rate from SpO2 Sensor 78 74 73 Respiratory Rate 20 16 Respiratory Effort / Characteristics Respiratory Depth Blood Pressure Blood Pressure Mean Blood Pressure Position Pulse Oximetry 96 92 95 Oxygen Delivery Method Sepsis Recent Fever Within 48 Hours Sepsis New/Unexplained Change in Mental Status Sepsis Action Taken by Nursing 10/27/23 19:50 10/27/23 19:50 10/27/23 20:00 Temperature Temperature Source Pulse Rate 77 91 H Pulse Rate from SpO2 Sensor Respiratory Rate 19 24 Respiratory Effort / Characteristics Respiratory Depth Blood Pressure 119/74 Blood Pressure Mean 103 Blood Pressure Position Pulse Oximetry Oxygen Delivery Method Sepsis Recent Fever Within 48 Hours Sepsis New/Unexplained Change in Mental Status Sepsis Action Taken by Alf Medications Current Medication List: was personally reviewed by me Laboratory Data Attestation: I reviewed the patient's lab results. 10/27/23 18:24 10/27/23 18:24 Lab Results 10/27/23 Range/Units 18:24 WBC 11.94 H (4.8-10.8) K/ul RBC 4.41 (4.20-5.40) M/uL Hgb 13.3 (12.0-16.0) g/dl Hct 38.4 (37.0-47.0) % MCV 87.1 (80.0-100.0) fL MCH 30.2 (25.0-34.0) pg MCHC 34.6 (32.0-36.0) g/dL RDW Std Deviation 41.2 (36.4-46.3) fL RDW Coeff of Ella 12.9 (11.5-14.5) % Plt Count 249 (130-400) K/uL MPV 10.5 (9.4-12.4) fL Immature Gran % (Auto) 0.3 % Neut % (Auto) 64.7 % Lymph % (Auto) 28.1 % [place] % (Auto) 5.0 % Eos % (Auto) 1.6 % Baso % (Auto) 0.3 % Neut # (Auto) 7.72 H (1.40-6.50) K/uL Lymph # (Auto) 3.36 (1.20-3.40) K/uL [place] # (Auto) 0.60 H (0.11-0.59) K/uL Eos # (Auto) 0.19 (0.00-0.50) K/uL Baso # (Auto) 0.03 (0.00-0.20) K/uL Immature Gran # (Auto) 0.04 (0.01-0.20) K/uL PT 10.1 (9.0-12.0) Seconds INR 0.9 (0.9-1.1) APTT 25 (21-31) Seconds PTT Ratio 0.9 Sodium 136 (136-145) mmol/L Potassium 3.5 (3.5-5.1) mmol/L Chloride 103 (98-107) mmol/L Carbon Dioxide 24 (21-32) mmol/L Anion Gap 9 (3-11) BUN 10 (6-23) mg/dl Creatinine 0.83 (0.6-1.2) mg/dl Est Cr Clr Drug Dosing 77.2 ml/min Est GFR ( Amer) 88.8 ml/min Est GFR (Non-Af Amer) 76.6 ml/min BUN/Creatinine Ratio 12.0 (10-20) Glucose 82 (70-99(Fasting)) mg/dl Calcium 9.3 (8.6-10.3) mg/dl Magnesium 2.0 (1.7-2.4) mg/dl Total Bilirubin 0.4 (0.2-1.0) mg/dl AST 18 (13-39) U/L ALT 30 (7-52) U/L Alkaline Phosphatase 81 (34-104) U/L Troponin I High Sens 5.4 (0-14) pg/ml Total Protein 6.8 (6.0-8.3) gm/dl Albumin 4.2 (3.4-5.0) gm/dl Globulin 2.6 (2.5-4.0) gm/dl Albumin/Globulin Ratio 1.6 (0.9-2) TSH 3.645 (0.300-4.500) uIu/ml Administered Medications Acetaminophen (Acetaminophen 325 Mg Tab) 650 mg PO Q4H PRN PRN Reason: Pain or Fever Stop: 11/26/23 21:24 Last Admin: 10/27/23 22:57 Dose: 650 mg Documented By: NICK Alprazolam (Alprazolam 0.5 Mg Tablet) 0.5 mg PO BID PRN PRN Reason: anxiety Stop: 11/26/23 21:24 Last Admin: 10/27/23 22:57 Dose: 0.5 mg Documented By: NICK Clopidogrel Bisulfate (Clopidogrel Bisulfate 75 Mg Tab) 75 mg PO QPM TRISHA Stop: 11/26/23 21:24 Last Admin: 10/28/23 00:14 Dose: 75 mg Documented By: NICK Heparin Sodium (Porcine) (Heparin Sod 5,000 Unit/0.5 Ml Vial) 5,000 units SQ Q12 TRISHA Stop: 11/26/23 21:24 Last Admin: 10/28/23 00:15 Dose: Not Given Documented By: NICK Pantoprazole Sodium (Pantoprazole 40 Mg Tab) 40 mg PO BID TRISHA Stop: 11/26/23 21:24 Last Admin: 10/28/23 00:15 Dose: 40 mg Documented By: NICK Discontinued Medications Potassium Chloride (Potassium Chloride Crtab 20 Meq Tabcr) 40 meq PO NOW STA Stop: 10/27/23 21:18 Last Admin: 10/27/23 21:32 Dose: 40 meq Documented By: [facility] Imaging Data Radiologist's Impression: Chest X-Ray 10/27/23 17:28 XR chest 1V portable HISTORY: weakness COMPARISON: CT lung screening 03/03/2023. FINDINGS: The lungs are clear. Cardiac silhouette is normal in size. No pleural effusions. No pneumothorax. IMPRESSION: No acute process. ACT 112: Negative or not required by law. Electronically signed by: Ciro Garrett M.D. 10/27/2023 6:14 PM Discharge Plan Visit Data Chief Complaint: Arrhythmia/Palpitations Stated Complaint: DIZZY, HEADACHE ED Provider: Moshe Lewis Discharge Problem: Precordial chest pain, History of LA (myocardial infarction), SOB (shortness of breath), Leukocytosis Patient Disposition: Admitted As Inpatient Condition: Fair Discharge Instructions Interventions: ED Discharge Assessment Last Done: 10/27/23 21:25 Discharge Problem: Leukocytosis Qualifiers: Leukocytosis type: unspecified Qualified Code(s): D72.829 - Elevated white blood cell count, unspecified
--- NOTE | 2023-10-27 18:16 | XRay Report ---
XR chest 1V portable HISTORY: weakness COMPARISON: CT lung screening 03/03/2023. FINDINGS: The lungs are clear. Cardiac silhouette is normal in size. No pleural effusions. No pneumot horax. IMPRESSION: No acute process. ACT 112: Negative or not required by law. Electronically signed by: Ciro Garrett M.D. 10/27/2023 6:14 PM
[2023-10-27 19:00] LABS: Basophils # (auto) 0.03 K/uL (0.00-0.20); Basophils % (auto) 0.3 %; Eosinophils # (auto) 0.19 K/uL (0.00-0.50); Eosinophils % (auto) 1.6 %; Hematocrit (blood only) 38.4 % (37.0-47.0); Hemoglobin 13.3 g/dl (12.0-16.0); Immature Granulocytes # (auto) 0.04 K/uL (0.01-0.20); Immature Granulocytes % (auto) 0.3 %; Lymphocytes # (auto) 3.36 K/uL (1.20-3.40); Lymphocytes % (auto) 28.1 %; Mean Corpuscular Hemoglobin 30.2 pg (25.0-34.0); Mean Corpuscular Hgb Conc 34.6 g/dL (32.0-36.0); Mean Corpuscular Volume 87.1 fL (80.0-100.0); Mean Platelet Volume 10.5 fL (9.4-12.4); Neutrophils # (auto) 7.72 K/uL (1.40-6.50); Neutrophils % (auto) 64.7 %; Platelet Count 249 K/uL (130-400); RDW Coefficient of Variation 12.9 % (11.5-14.5); RDW Standard Deviation 41.2 fL (36.4-46.3); Red Blood Count 4.41 M/uL (4.20-5.40); White Blood Count 11.94 K/ul (4.8-10.8)
[2023-10-27 19:16] LABS: Albumin Globulin Ratio 1.6 (0.9-2); Albumin Level 4.2 gm/dl (3.4-5.0); Bilirubin,Total 0.4 mg/dl (0.2-1.0); Calcium 9.3 mg/dl (8.6-10.3); Creatinine Clr Calc Pharmacy 77.2 ml/min; Est GFR (African American) 88.8 ml/min; Est GFR (Non-African American) 76.6 ml/min; Globulin 2.6 gm/dl (2.5-4.0); Potassium 3.5 mmol/L (3.5-5.1); Total Protein 6.8 gm/dl (6.0-8.3)
[2023-10-27 19:22] LABS: Troponin I High Sensitivity 5.4 pg/ml (0-14)
[2023-10-27 19:24] LABS: INR 0.9 (0.9-1.1); Partial Thromboplastin Ratio 0.9; Partial Thromboplastin Time 25 Seconds (21-31); Prothrombin Time 10.1 Seconds (9.0-12.0)
[2023-10-27 19:31] LABS: Thyroid Stimulating Hormone 3.645 uIu/ml (0.300-4.500)
--- NOTE | 2023-10-27 20:05 | History & Physical Report ---
Date of Service October 27, 2023 Assessment & Plan (1) Chest pressure: (2) Cigarette smoker: (3) CAD (coronary artery disease): (4) Obstructive sleep apnea on CPAP: (5) Anxiety: (6) S/P coronary artery stent placement: (7) Hypercholesterolemia: (8) GERD (gastroesophageal reflux disease): (9) Tobacco dependency: (10) Depression: (11) History of myocardial infarction: Plan Chest pressure/CAD/hypertension/history of CA/history of coronary stent placement- The patient will be admitted to telemetry for serial cardiac enzymes, serial EKG's, cardiac rhythm monitoring and a 2-D echocardiogram with Dopplers. Differential is whether this is a cardiac issue or primarily an issue with CPAP adjustment for sleep apnea High-sensitivity troponin normal at 5.4 Potassium borderline at 3.5, will give 40 mill equivalents p.o. Continue aspirin 81 mg daily, clopidogrel 75 mg daily, lisinopril 5 mg daily FABIOLA on CPAP- Patient has had difficulty with getting comfortable on CPAP. Her daughter will bring the patient's CPAP device in to the hospital this evening. Will ask respiratory therapy to optimize as best they can Continue albuterol HFA 2 puffs every 6 hours as needed Generalized muscle aches- Unclear etiology at this time She is on rosuvastatin 40 mg daily, and might benefit from addition of co-Q10 Anxiety- Continue alprazolam 0.5 mg p.o. twice daily as needed History of Present Illness Chief Complaint: The patient presents to the emergency department with symptoms of persistent chest pressure/heaviness over the past several days, worse over the past 24 hours, which she is unsure related to problems with her CPAP pressure level or an underlying heart issue. She also complains of generalized myalgias. Primary Care Provider: Yvonne Manzano MD The patient is a 58-year-old female with a past medical history including tobacco use disorder, FABIOLA on CPAP, anxiety, CAD status post coronary artery stent placement, hypercholesterolemia, obesity, and GERD. She presents to the emergency department with what she feels are difficult to describe abnormal sensation in her chest, it is either a pressure or heaviness, and reports that when she had her CA in the past, she had difficulty explaining the symptoms that she had as well at that time 2. She has been on CPAP for 3 years, and reports that her initial study was 21, with which is decreased to 18, but she still feels as if the pressure is too high, and still has difficulty with sleep. She denies any recent travels or sick exposures. She continues to have baseline dyspnea on exertion. She follows with cardiology Dr. Nunez, and is unsure of who has prescribed her CPAP, but record review reveals Phani English DDS office visit on 07/23/2023, and office visit on 09/11/2023 with Ayla phelps DO at the [facility] sleep disorders Center in [facility] Allergies Allergy/AdvReac Type Severity Reaction Status Date / Time No Known Allergies Allergy Verified 10/27/23 19:14 Home Medications Medication Instructions Recorded Confirmed Type alprazolam 0.5 mg tablet 0.5 mg PO BID PRN anxiety #60 tabs 03/10/22 10/27/23 Rx aspirin 81 mg tablet,delayed 81 mg PO QAM #30 tabs 03/26/22 10/27/23 Rx release lisinopril 5 mg tablet (Zestril) 5 mg PO QAM #30 tabs 11/19/22 10/27/23 Rx nitroglycerin 0.4 mg sublingual 0.4 mg sublingual Q5M PRN Chest 11/21/22 10/27/23 Rx tablet Pain #30 tabs pantoprazole 40 mg tablet,delayed 40 mg PO BID GERD #60 tabs 10/09/23 10/27/23 Rx release rosuvastatin 40 mg tablet 40 mg PO DAILY #30 tabs 10/09/23 10/27/23 Rx alirocumab 75 mg/mL subcutaneous 75 mg subcut Q14D #2 mL 10/16/23 10/27/23 Rx pen injector (Praluent Pen) albuterol sulfate 90 mcg/actuation 2 puff inhalation .Q4-6HR PRN 10/27/23 10/27/23 History aerosol inhaler (ProAir HFA) shortness of breath or wheezing clopidogrel 75 mg tablet 75 mg PO QPM 10/27/23 10/27/23 History Past Med/Surg History Medical History (Updated 10/27/23 @ 21:15 by Elliott Guido MD) History of non-ST elevation myocardial infarction (NSTEMI) May 2020 > [facility] > 1 stent On anticoagulant therapy plavix daily History of COVID-19 diagnosed 07/15/21 @ [facility] prior to scheduled procedure--asymptomatic--no symptoms now Anxiety Depression History of myocardial infarction 05/2020 Sleep apnea CPAP CAD (coronary artery disease) Follows with Dr. Nunez Hypercholesterolemia Obesity (BMI 30-39.9) Tobacco dependency GERD (gastroesophageal reflux disease) Surgical History History of colonoscopy History of esophagogastroduodenoscopy (EGD) History of surgery of head plastic surgery following injury to head at age 1 History of tonsillectomy History of cardiac catheterization 05/2020 - [place] - [place] - [facility] x 1 S/P coronary artery stent placement History of section x1 Family History Other Coronary heart disease Dyslipidemia No family history of adverse response to anesthesia Denies family history of Ovarian cancer Prostate cancer Myocardial infarction Breast cancer Colorectal cancer Social History Smoking Status: Never smoker Tobacco Type: Cigarettes Age Started Using Tobacco: 18; Age Quit Using Tobacco: 54; Cigarettes Per Day: 10 a day- advised; Second Hand Exposure: No; Do You Dip or Chew Tobacco: No; Hx Alcohol Use: Yes (once per week) Alcohol type: beer Alcohol Intake Frequency: 2-4 x/Month Hx Substance Use: No Preferred Language: Prydeinig Communication Ability: Effective Visual Impairment: No Limitations Hearing Ability: Normal Asphalt Raker Required: No Beliefs That Will Affect Care: None marital status: Current Living Situation: Spouse Current Living Situation Comment: w/mother and son current occupational status: employed Feels Safe at Home: Yes Childhood Exposure to Second-Hand Smoke: Yes Diet: regular Dental Care, Regularly: No Physical Activity Frequency: Does not Exercise Seatbelt Use: always Sunscreen Use: No Assistive Devices: CPAP Review of Systems Review of Systems: The patient denies palpitations, cough, lower extremity swelling, sore throat, fevers, chills, sweats, nausea, vomiting, diarrhea , constipation, abdominal pain, pelvic pain, blood in urine or stool, dysuria, urinary frequency or urgency, lightheadedness, dizziness, memory loss, loss of consciousness, rash, abnormal bruising or bleeding, imbalance, focal weakness, numbness or tingling in arms or legs, back or neck pain, or night sweats. The review of systems is otherwise negative other than for that already noted above, and at least 10 systems have been reviewed. Physical Exam Physical Exam: The patient is awake, alert and oriented 3, well developed and well nourished, normocephalic and atraumatic, lying in bed and in no acute distress. HEENT--PERRL, EOMI, mucous membranes and oropharynx normal Neck--supple. No JVD. No bruits. Thyroid normal, trachea midline, no adenopathy. Heart--normal S1 and S2. No murmurs, rubs or gallops. Lungs--clear bilaterally, no respiratory distress, no accessory muscle use. Abdomen--normal bowel sounds and soft. Nontender. Nondistended. Mildly obese Extremities--no cyanosis or clubbing. No edema. There are good distal pulses b/l. Dermatologic--normal skin turgor, normal color, no abnormal lymph nodes, no rash. Neurologic--cranial nerves II through XII grossly intact. Rheumatologic--normal range of motion. Psychiatric--normal affect. Results & Data Results & Data Vital Signs (Past 12 Hours) Vital Signs Temp Pulse Resp BP Pulse Ox O2 Del Method 10/27/23 19:30 95 10/27/23 19:00 73 16 92 10/27/23 18:30 79 20 96 10/27/23 18:20 87 10/27/23 18:18 92 H 22 10/27/23 17:17 37.1 C 97 H 18 143/90 H 97 Room Air Laboratory Results Laboratory Results WBC 11.94 K/ul (4.8-10.8) H 10/27/23 18:24 RBC 4.41 M/uL (4.20-5.40) 10/27/23 18:24 Hgb 13.3 g/dl (12.0-16.0) 10/27/23 18:24 Hct 38.4 % (37.0-47.0) 10/27/23 18:24 MCV 87.1 fL (80.0-100.0) 10/27/23 18:24 MCH 30.2 pg (25.0-34.0) 10/27/23 18:24 MCHC 34.6 g/dL (32.0-36.0) 10/27/23 18:24 RDW Std Deviation 41.2 fL (36.4-46.3) 10/27/23 18: RDW Coeff of Ella 12.9 % (11.5-14.5) 10/27/23 18: Plt Count 249 K/uL (130-400) 10/27/23 18: MPV 10.5 fL (9.4-12.4) 10/27/23 18: Immature Gran % (Auto) 0.3 % 10/27/23 18: Neut % (Auto) 64.7 % 10/27/23 18: Lymph % (Auto) 28.1 % 10/27/23 18: [place] % (Auto) 5.0 % 10/27/23 18: Eos % (Auto) 1.6 % 10/27/23 18: Baso % (Auto) 0.3 % 10/27/23 18: Neut # (Auto) 7.72 K/uL (1.40-6.50) H 10/27/23 18:24 Lymph # (Auto) 3.36 K/uL (1.20-3.40) 10/27/23 18:24 [place] # (Auto) 0.60 K/uL (0.11-0.59) H 10/27/23 18: Eos # (Auto) 0.19 K/uL (0.00-0.50) 10/27/23 18:24 Baso # (Auto) 0.03 K/uL (0.00-0.20) 10/27/23 18: Immature Gran # (Auto) 0.04 K/uL (0.01-0.20) 10/27/23 18: PT 10.1 Seconds (9.0-12.0) 10/27/23 18: INR 0.9 (0.9-1.1) 10/27/23 18: APTT 25 Seconds (21-31) 10/27/23 18:24 PTT Ratio 0.9 10/27/23 18:24 Sodium 136 mmol/L (136-145) 10/27/23 18: Potassium 3.5 mmol/L (3.5-5.1) 10/27/23 18:24 Chloride 103 mmol/L (98-107) 10/27/23 18:24 Carbon Dioxide 24 mmol/L (21-32) 10/27/23 18:24 Anion Gap 9 (3-11) 10/27/23 18:24 BUN 10 mg/dl (6-23) 10/27/23 18:24 Creatinine 0.83 mg/dl (0.6-1.2) 10/27/23 18:24 Est Cr Clr Drug Dosing 77.2 ml/min 10/27/23 18:24 Est GFR ( Amer) 88.8 ml/min 10/27/23 18:24 Est GFR (Non-Af Amer) 76.6 ml/min 10/27/23 18:24 BUN/Creatinine Ratio 12.0 (10-20) 10/27/23 18:24 Glucose 82 mg/dl (70-99(Fasting)) 10/27/23 18:24 Calcium 9.3 mg/dl (8.6-10.3) 10/27/23 18:24 Magnesium 2.0 mg/dl (1.7-2.4) 10/27/23 18:24 Total Bilirubin 0.4 mg/dl (0.2-1.0) 10/27/23 18:24 AST 18 U/L (13-39) 10/27/23 18:24 ALT 30 U/L (7-52) 10/27/23 18:24 Alkaline Phosphatase 81 U/L (34-104) 10/27/23 18:24 Troponin I High Sens 5.4 pg/ml (0-14) 10/27/23 18:24 Total Protein 6.8 gm/dl (6.0-8.3) 10/27/23 18:24 Albumin 4.2 gm/dl (3.4-5.0) 10/27/23 18:24 Globulin 2.6 gm/dl (2.5-4.0) 10/27/23 18:24 Albumin/Globulin Ratio 1.6 (0.9-2) 10/27/23 18:24 TSH 3.645 uIu/ml (0.300-4.500) 10/27/23 18:24 Impressions Chest X-Ray 10/27/23 17:28 XR chest 1V portable HISTORY: weakness COMPARISON: CT lung screening 03/03/2023. FINDINGS: The lungs are clear. Cardiac silhouette is normal in size. No pleural effusions. No pneumothorax. IMPRESSION: No acute process. ACT 112: Negative or not required by law. Electronically signed by: Ciro Garrett M.D. 10/27/2023 6:14 PM Code Status & VTE Plan Code Status Full code VTE Prophylaxis Plan VTE Prophylaxis will be ordered: Yes PG Care Time/CCT Total # of Minutes Spent Total Time Spent with Patient: Total time spent is greater than 50% in coordination of care (as documented) at patient's floor/unit and/or counseling patient: Coding Level of Care Code 74273 INT INP/OBS CARE 3/75MIN Diagnoses Chest pressure R07.89 Cigarette smoker F17.210 CAD (coronary artery disease) I25.10 Obstructive sleep apnea on CPAP G47.33 Anxiety F41.9 S/P coronary artery stent placement Z95.5 Hypercholesterolemia E78.00 Gastroesophageal reflux disease, unspecified whether esophagitis present K21.9 Esophagitis presence: esophagitis presence not specified Tobacco dependency F17.200 Depression F32.9 History of myocardial infarction I25.2 (8) GERD (gastroesophageal reflux disease) Esophagitis presence: esophagitis presence not specified Qualified Code(s): K21.9 - Gastro-esophageal reflux disease without esophagitis
[2023-10-27] MEDS ORDERED: NITROGLYCERIN SL 0.4 MG/TAB TAB SL PRN (21:25)
[2023-10-27] MEDS ORDERED: ALBUTEROL HFA 8 GM INHALER INH PRN (21:25)
[2023-10-27] MEDS ORDERED: ONDANSETRON INJ 2 MG/ML 2 ML VIAL IV PRN (21:25)
[2023-10-27] MEDS: POTASSIUM CHLORIDE CRTAB 20 MEQ TABCR PO STA (21:32)
[2023-10-27] MEDS: ALPRAZolam 0.5 MG TABLET PO PRN (22:57)
[2023-10-27] MEDS: ACETAMINOPHEN 325 MG TAB PO PRN (22:57)
[2023-10-28] MEDS: CLOPIDOGREL BISULFATE 75 MG TAB PO SCH (00:14)
[2023-10-28] MEDS: HEPARIN SOD 5,000 UNIT/0.5 ML VIAL SQ SCH (00:15)
[2023-10-28] MEDS: PANTOprazole 40 MG TAB PO SCH (00:15)
[2023-10-28] MEDS: lisinopril 5 MG TAB PO SCH (08:56)
[2023-10-28] MEDS: ASPIRIN 81 MG ECTAB PO SCH (08:56)
[2023-10-28] MEDS: ROSUVASTATIN CALCIUM 20 MG TAB PO SCH (08:56)
[2023-10-28 09:22] LABS: Appearance Urine Clear (Clear); Bacteria Urine Automated None Seen (None Seen); Bilirubin Urine Negative (Negative); Blood Urine Negative (Negative); Cast Urine Automated 0-2 /lpf (0-2); Color Urine Yellow; Glucose Urine UA Negative (Negative); Ketones Urine Negative (Negative); Leukocyte Esterase Urine Trace (Negative); Nitrite Urine Negative (Negative); Protein Urine Negative (Negative); RBC Urine Automated 0-2 /hpf (0-2); Specific Gravity Urine 1.009 (1.000-1.030); Urobilinogen Urine Negative (Negative); WBC Urine Automated 0-5 /hpf (0-5); pH Urine 7.5 (4.5-7.5)
--- NOTE | 2023-10-28 11:34 | Discharge Summary ---
Date of Service October 28, 2023 Admission HPI Per Admitting Provider The patient is a 58-year-old female with a past medical history including tobacco use disorder, FABIOLA on CPAP, anxiety, CAD status post coronary artery stent placement, hypercholesterolemia, obesity, and GERD. She presents to the emergency department with what she feels are difficult to describe abnormal sensation in her chest, it is either a pressure or heaviness, and reports that when she had her SC in the past, she had difficulty explaining the symptoms that she had as well at that time 2. She has been on CPAP for 3 years, and reports that her initial study was 21, with which is decreased to 18, but she still fe els as if the pressure is too high, and still has difficulty with sleep. She denies any recent travels or sick exposures. She continues to have baseline dyspnea on exertion. She follows with cardiology Dr. Nunez, and is unsure of who has prescribed her CPAP, but record review reveals Phani English DDS office visit on 07/23/2023, and office visit on 09/11/2023 with Ayla phelps DO at the [facility] sleep disorders Center in [facility] Principal Diagnosis Atypical chest pain Discharge Exam General-alert and oriented x3, no fever, no chills HEENT-head atraumatic and normocephalic, pupils equal and reactive to light, extraocular muscles intact Neck-no lymphadenopathy or thyromegaly, trachea midline Chest-clear to auscultation. No rales, wheezing or rhonchi Cardiac-regular rate and rhythm, normal S1 and S2 Abdomen-normal bowel sounds, no hepatosplenomegaly Extremities-no cyanosis, clubbing, or edema Neuro-cranial nerves II through XII intact, motor and sensory function within normal limits, strength symmetrical, no focal deficits Psych-normal affect, normal mood Discharge Data Allergies Allergy/AdvReac Type Severity Reaction Status Date / Time No Known Allergies Allergy Verified 10/27/23 19:14 Consultations 10/27/23 19:39 ED Decision to Admit Stat Hospital Course (1) Chest pressure: Appears to be atypical. Troponin series is negative. 2 separate EKGs on 2 separate days are unremarkable. Cardiac echo report is pending. (2) Cigarette smoker: Smoking cessation recommended (3) CAD (coronary artery disease): Stable. Continue current medical manage (4) Obstructive sleep apnea on CPAP: Stable. Continue CPAP at bedtime. Follow-up with PCP (5) S/P coronary artery stent placement: Stable. Continue current medical med (6) Hypercholesterolemia: Stable. Continue current medical management Plan Home today, October 27. Follow-up with PCP for scheduling of outpatient cardiac stress testing. Total Time Total Time Spent Total Time Spent (In Minutes): 45 minutes Discharge Plan Discharge Items Patient Disposition: Home - Self-Care Reason For Visit: CHEST PRESSURE Discharge Diagnosis: Atypical chest pain Condition on Discharge: Good Activity: Resume your previous activity Non-emergency contact: Primary Care Provider Call non-emergency contact if: your symptoms worsen Follow-up/Referrals: Yvonne Manzano MD [Primary Care Provider] - Diet: Regular and Heart Healthy Addtl Attending Provider Instructions: All medications remain the same. Use nitroglycerin under the tongue as needed for any recurrent chest discomfort. See PCP as soon as possible for scheduling of outpatient stress testing. Smoking cessation is highly recommended Pending Studies at Discharge: No Stand-Alone Forms: [facility], Smoking Cessation Medications and DC Order Prescriptions: Continued alprazolam 0.5 mg tablet 0.5 mg PO BID PRN (Reason: anxiety) Qty: 60 0RF aspirin 81 mg tablet,delayed release (DR/EC) 81 mg PO QAM Qty: 30 5RF lisinopril [Zestril] 5 mg tablet 5 mg PO QAM Qty: 30 5RF nitroglycerin 0.4 mg tablet, sublingual 0.4 mg sublingual Q5M PRN (Reason: Chest Pain) Qty: 30 1RF rosuvastatin 40 mg tablet 40 mg PO DAILY Qty: 30 11RF pantoprazole 40 mg tablet,delayed release (DR/EC) 40 mg PO BID Qty: 60 4RF Praluent Pen 75 mg/mL pen injector 75 mg subcut Q14D Qty: 2 5RF Rx Instructions: inject into abdomen, thigh, or upper arm (deltoid muscle); rotate sites clopidogrel 75 mg tablet 75 mg PO QPM Rx Instructions: TAKE 1 TABLET BY MOUTH ONCE DAILY IN THE EVENING albuterol sulfate [ProAir HFA] 90 mcg/actuation HFA aerosol inhaler 2 puff inhalation .Q4-6HR PRN (Reason: shortness of breath or wheezing) Discharge Orders: Discharge Order (Routine); Ordered 10/28/23 Ordered By: Walter Rosales Admission Data Admit Date/Time: 10/27/23 20:04 Attending Provider: Walter Rosales Admit Provider: Elliott Guido Primary Care Provider: Yvonne Manzano Other Providers: Elliott Guido Coding Level of Care Code 19691 INP/OBS DISCH >30 MIN Diagnoses Chest pressure R07.89 Cigarette smoker F17.210 CAD (coronary artery disease) I25.10 Obstructive sleep apnea on CPAP G47.33 S/P coronary artery stent placement Z95.5 Hypercholesterolemia E78.00
--- OUTSIDE RECORDS SUMMARY | 2023-10-29 01:06 | External Medical Summary | Summary of Care ---
Author Name Unknown Organization [facility] Address [address] [place] [address] Phone [phone] Care Team Providers Care Black Mill Operator Name Role Phone Yvonne Manzano MD Primary Care Provider Reason for Visit * Reason Onset Date Comments Surgery 07/30/2023 Encounter Details Date Type Department Care Team (Late st Contact Info) Description 07/30/2023 Telephone Dental Medicine, [facility] [address] [place] [address] Rodolfo English DMD [address] [place] [address] Surgery Allergies Active Allergy Reactions Criticality Noted Date Comments No Known Drug Allergy 07/25/2004 documented as of this encounter (statuses as of 07/30/2023) Medications Medication Sig Dispensed Refills Start Date End Date Status ALBUTEROL 90 MCG/ACT IN AERSIndications:Acute bronchitis, antibiotics not indicated two puffs 4 times a day 1 MDI 5 11/06/2005 Active Pantoprazole Sodium 40 MG Oral Tablet Delayed Release (Protonix) Take 1 Tablet by mouth in the morning. 0 09/27/2021 Active Clopidogrel Bisulfate 75 MG Oral Tablet (pLAVix) Take 1 Tablet by mouth in the morning. 0 09/29/2021 Active Lisinopril 5 MG Oral Tablet (Prinivil) Take 1 Tablet by mouth in the morning. In the morning.. 0 09/27/2021 Active Atorvastatin Calcium 80 MG Oral Tablet (Lipitor) Take 1 Tablet by mouth in the morning. 0 10/23/2021 Active ALPRAZolam 0.5 MG Oral Tablet (xaNAX) Take 1 Tablet by mouth 2 times a day as needed. 0 09/03/2021 Active EQ Aspirin Adult Low Dose 81 MG Oral Tablet Delayed Release Take 1 Tablet by mouth. In the morning. 0 12/21/2021 Active Praluent 75 MG/ML Subcutaneous Solution Auto-injector Inject 75 mg under the skin. Every other week 0 04/11/2022 Active Ozempic (0.25 or 0.5 MG/DOSE) 2 MG/3ML Solution Pen-injector (Semaglutide(0.25 or 0.5MG/DOS)) Inject 0.5 mg under the skin once a week. 3 mL 1 07/17/2023 Active documented as of this encounter (statuses as of 07/30/2023) Active Problems Problem Noted Date Diagnosed Date Gastroparesis 02/06/2022 Gastroesophageal reflux disease 01/27/2022 FABIOLA (obstructive sleep apnea) 01/27/2022 Abnormal weight gain 01/27/2022 Tobacco use 01/27/2022 Dyslipidemia, goal LDL below 70 01/27/2022 Depression 01/27/2022 HTN, goal below 140/90 01/27/2022 Panic attack 01/27/2022 Coronary artery disease invo lving [place] coronary artery of [place] heart without angina pectoris 01/20/2022 documented as of this encounter (statuses as of 07/30/2023) Resolved Problems Problem Noted Date Diagnosed Date Resolved Date Hernia, paraesophageal 02/06/202202/06 documented as of this encounter (statuses as of 07/30/2023) Social History Tobacco Use Types Packs/Day Years Used Date Smoking Tobacco: Every Day Cigarettes 1 35 Smokeless Tobacco: Never Comments:03/10/22 Smokes 10- 20 cig/day 07/23/23- half to 3/4 pack a day Alcohol Use Standard Drinks/Week Comments Yes 6 (1 standard drink = 0.6 oz pur e alcohol) social Sex and Gender Information Value Date Recorded Sex Assigned at Not on file Gender Identity Not on file Sexual Orientation Not on file Job Start Date Occupation Industry Not on file Not on file Not on file documented as of this encounter Miscellaneous Notes * Telephone Encounter - Velia Hillman, FABIOLA - 07/30/2023 11:23 AM EST Spoke with Dr. English can be later in the morning * Telephone Encounter - Steph Miller OSA - 07/30/2023 10:34 AM EST Pt having surgery tomorrow with Dr. English - was told to be here at 6:15 am. 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 and cannot make until 8 am - please call pt at [phone] documented in this encounter Plan of Treatment Upcoming Encounters Date Type Department Care Team (Late st Contact Info) Description 07/31/2023 10:15 AM EST Hospital Encounter OR [facility], OPERATING ROOM [facility], [facility] [address] [place] [address] Joseph English DDS [address] [place] [address] 07/31/2023 10:15 AM EST - 07/31/2023 10:35 AM EST Surgery OR [facility], OPERATING ROOM [facility] [address] [place] [address] Joseph English DDS [address] [place] [address] DRUG-INDUCED SLEEP ENDOSCOPY, WITH DYNAMIC EVALUATION OF VELUM, PHARYNX, TONGUE BASE, AND LARYNX FOR EVALUATION OF SLEEP-DISORDERED BREATHING, FLEXIBLE, DIAGNOSTIC Scheduled Procedures Name Priority Associated Diagnoses Date/Ti me DRUG-INDUCED SLEEP ENDOSCOPY, WITH DYNAMIC EVALUATION OF VELUM, PHARYNX, TONGUE BASE, AND LARYNX FOR EVALUATION OF SLEEP-DISORDERED BREATHING, FLEXIBLE, DIAGNOSTIC FABIOLA (obstructive sleep apnea) 07/31/2023 10:15 AM EST Health Maintenance Due Date Last Done Comments DISCUSS TOBACCO CESSATION (REFER TO SMARTSET #2334) 1965 Hepatitis B (1 of 3 - 3-dose series) 1965 Pneumococcal Vaccine: Pediatrics (0 to 5 Years) and At-Risk Patients (6 to 64 Years) (1 - PCV) 09/04/1969 Depression Screening 1975 HIV Screening 09/04/1978 Albumin/Creatinine Ratio 09/04/1981 Hepatitis C Screening 09/04/1981 DTaP,Tdap,and Td Vaccines (1 - Tdap) 09/04/1982 Pap Smear 09/04/1984 Cervical Cancer Screening 09/04/1993 HPV/Co-Test 09/04/1993 Mammogram 2003 Cologuard 09/04/2008 Colonoscopy 09/04/2008 Colorectal Cancer Screening 09/04/2008 Fecal Occult Blood Test 09/04/2008 Sigmoidoscopy 09/04/2008 LUNG CANCER SCREENING - USE SMARTSET 76619 09/04/2013 Zoster Vaccines (1 of 2) 09/04/2013 COVID-19 Vaccine (4 - 2022-2 4 season) 2023 07/04/2021, 09/15/2020, 08/25/2020 Influenza Vaccine (FLU shot) (#1) 2023 04/10/2015 GFR 07/23/2024 07/23/2023, 05/15/2022 Diabetes Screening 07/23/2026 07/23/2023, 05/15/2022, 05/15/2022 GARDASIL-HPV IMMUNIZATION SERIES Aged Out No longer eligible b ased on patient's age to complete this topic MENINGOCOCCAL (MENACTRA/MENVEO) Aged Out No longer eligible b ased on patient's age to complete this topic documented as of this encounter Medical Devices Not on filedocumented as of this encounter Care Teams Black Mill Operator Relationship Specialty Start Date End Date Yvonne Manzano MD [address] [place] [address] PCP - General Family Medicine 11/06/21 documented as of this encounter
--- OUTSIDE RECORDS SUMMARY | 2023-10-29 01:06 | External Medical Summary ---
Author Name Unknown Address Unknown Organization : Laboratory Report Ordering Provider Test Date Status MIROSLAVA DE LUNA 07/31/2023 09:28:36 Final Observation Date Value Abnormality Reference (Units ) Status Glucose Point of Care 07/31/2023 09:28:36 79 70-120 (mg/dL) Final Performing Location
--- OUTSIDE RECORDS SUMMARY | 2023-10-29 01:06 | External Medical Summary | Summary of Care ---
Author Name Unknown Organization [facility] Address [address] [place] [address] Phone [phone] Care Team Providers Care Drafter (Cad) Electronic Name Role Phone Yvonne Manzano MD Primary Care Provider Reason for Visit * Auth/Cert Specialty Diagnoses / Procedures Referred By Milli sanchez Referred To Contact Diagnoses FABIOLA (obstructive sleep apnea) FABIOLA (obstructive sleep apnea) [G47.33] Procedures DRUG-INDUCED SLEEP ENDOSCOPY, EVAL OF SLEEP-DISORDERED BREATHING, FLEXIBLE, DIAG DRUG-INDUCED SLEEP ENDOSCOPY, WITH DYNAMIC EVALUATION OF VELUM, PHARYNX, TONGUE BASE, AND LARYNX FOR EVALUATION OF SLEEP-DISORDERED BREATHING, FLEXIBLE, DIAGNOSTIC Referral ID Status Reason Start Date Expiration Date Visits Re quested Visits Authorized [id number] Encounter Details Date Type Department Care Team (Late st Contact Info) Description 07/31/2023 8:30 AM EST - 07/31/2023 11:41 AM [facility] Hospital Encounter [facility], OPERATING ROOM [facility] [address] [place] [address] Joseph English DDS [address], [place] [id number] Discharge Disposition: Home - Self Care Allergies Active Allergy Reactions Criticality Noted Date Comments No Known Drug Allergy 07/25/2004 documented as of this encounter (statuses as of 07/31/2023) Medications Medication Sig Dispensed Refills Start Date End Date Status ALBUTEROL 90 MCG/ACT IN AERSIndications:Ac carlita bronchitis, antibiotics not indicated two puffs 4 times a day 1 MDI 5 11/06/2005 Active Additional Information Patient not taking.Reported on 07/31/2023 Pantoprazole Sodium 40 MG Oral Tablet Delayed [...] a week. 3 mL 1 07/17/2023 Active Vitamin D (Ergocalciferol) 1.25 MG (83793 UT) Oral CapsuleIndications :Vitamin D deficiency Take 1 Capsule (50,000 Units) by mouth once a week. 8 Capsule 0 05/16/2022 4 Discontinue d(Medicatio n List Clean Up) metFORMIN HCl 500 MG Oral Tablet (Glucophage)Indica tions:Prediabetes 1500 mg daily 60 Tablet 1 12/05/2022 4 Discontinue d(Medicatio n List Clean Up) Rosuvastatin Calcium 40 MG Oral Tablet (Crestor) Take 1 Tablet by mouth in the morning. 0 4 Discontinue d(Medicatio n List Clean Up) documented as of this encounter (statuses as of 07/31/2023) Active Problems Problem Noted Date Diagnosed Date Gastroparesis 02/06/2022 Gastroesophageal reflux disease 01/27/2022 FABIOLA (obstructive sleep apnea) 01/27/2022 Abnormal weight gain 01/27/2022 Tobacco use 01/27/2022 Dyslipidemia, goal LDL below 70 01/27/2022 Depression 01/27/2022 HTN, goal below 140/90 01/27/2022 Panic attack 01/27/2022 Coronary artery disease invo lving eek coronary artery of eek heart without angina pectoris 01/20/2022 documented as of this encounter (statuses as of 07/31/2023) Resolved Problems Problem Noted Date Diagnosed Date Resolved Date Hernia, paraesophageal 02/06/202202/06 documented as of this encounter (statuses as of 07/31/2023) Social History Tobacco Use Types Packs/Day Years [...] on file documented as of this encounter Last Filed Vital Signs Vital Sign Reading Time Taken Comments Blood Pressure 128/77 07/31/2023 11:30 AM EST Pulse 80 07/31/2023 11:30 AM EST Temperature 36.6 C (97.9 F) 07/31/2023 11:[address] Respiratory Rate 21 07/31/2023 11:30 AM EST Oxygen Saturation 96% 07/31/2023 11:30 AM EST Inhaled Oxygen Concentration - - Weight 95.3 kg (210 lb) 07/31/2023 8:37 AM EST Height 157.5 cm (5' 2") 07/31/2023 8:37 AM EST Body Mass Index 38.41 07/31/2023 8:37 AM EST documented in this encounter Discharge Instructions * Discharge Instr - AVS* Sada Moncada DMD - 07/31/2023 10:07 AM EST Discharge Date: 07/31/23 You may call Doctor Joseph English DDS of the department of Oral & Maxillofacial Surgery at during business hours for any questions or test results. For after-hours emergencies call and have the Oral & Maxillofacial Surgery resident digital solutions architect paged. Your attending physician at the time of your discharge was: Joseph English, DDS [address] [place] [address] You have just experienced an oral maxillofacial surgical procedure. The success in any surgical procedure depends upon proper care during the post-operative period. The information below provides you with the instructions and the list of medications you need to betaking following discharge from the hospital. If you have any questions, please ask before leaving.Please carry this letter with you when you see your doctor in the clinic. If you have questions, you can reach us at the numbers above. Brief summary of your inpatient care: Your primary diagnosis at discharge was: Principal Problem: FABIOLA (obstructive sleep apnea) (POA: Yes) POA = Present On Admission Inpatient test results pending: None Operations & Procedures: Drug Induced Sleep Endoscopy Complications: none applicable Diet: Normal diet Activity: No strenuous activity for 24 hours Driving: You may resume driving tomorrow . Date you may return to work or school: tomorrow See your primary care physician (Yvonne Manzano MD) in 1 year(s). Instructions: - Do not eat or drink until the numbing wears off. - Mild nose and throat discomfort is common. - Mild bleeding from the nose is common and should resolve without intervention. - Good judgment is the guide for activity. If you have any questions concerning your post-operative instructions, or you have any problems, don't hesitate to call our office. Our Sleep Surgery Geological Engineer, Radha Santana RN, BSN, can bereached directly at [phone] or [email or web address]. If you call after hours, leave your name and a phone number where you can be reached. If you have any emergent needs, please call the hospital auto former machine operator and ask for the assistant to the vice president digital solutions architect. --- documented in this encounter Progress Notes * Sada Moncada DMD - 07/31/2023 8:30 AM EST [address] [address] OUTPATIENT SURGERY DISCHARGE SUMMARY NOTE Name: Marla Kearns Location: [place] [facility] [place] Date: 07/31/2023 Time: 10:07 AM Surgery Date: 07/31/2023 Procedure: Drug Induced Sleep Endoscopy Surgeon: Surgeon(s): Joseph English DDS Clearing Supervisor(s): Sada Moncada DMD Discharge Diagnosis: FABIOLA (obstructive sleep apnea) [G47.33] After examination of this patient, I have determined she is ready for discharge to home when the patient meets criteria. Discharge instructions were given to the patient. documented in this encounter H&P Notes * Sada Moncada DMD - 07/31/2023 9:23 AM EST Images from the original note were not included. HISTORY & PHYSICAL - Oral & Maxillofacial Surgery [address] [address] Name: Marla Kearns Location: Room/bed info not found Date: 07/31/2023 Time: 9:23 AM HISTORY OF PRESENT ILLNESS: Marla Kearns is a 57 year old female Referring Provider: Padmini patient portal Initial Consultation (OMS): 07/23/23 Year of Dx: 2020 Sleep Provider: [facility] Comorbidities: HTN Chief complaints: poor sleep quality, loud snoring with witnessed apneas, daytime somnolence. Most Recent Sleep Study: Peter Early PSG, 06/26/22, AHI: 94/3, ELENA: 0 Intolerant to CPAP/BiPAP/AutoPAP because GERD (reflux during mask-wearing), Ill- fitting masks, Anxiety. Worthing Sleepiness Scale (ESS): BMI: 38.5 Discussed drug-induced sleep endoscopy as the next diagnostic step, including risks, benefits, alternatives. Questions were invited and answered. The patient demonstrated understanding and agreed to proceed with treatment, as proposed. The patient presents today for scheduled procedure: DISE. She denies any changes to health since last clinic visit. Denies recent illness. MEDICAL HISTORY: Patient Active Problem List Diagnosis Code Coronary artery disease involving eek coronary artery of eek heart without angina pectoris I25.10 Gastroesophageal reflux disease K21.9 FABIOLA (obstructive sleep apnea) G47.33 Abnormal weight gain R63.5 Tobacco use Z72.0 Dyslipidemia, goal LDL below 70 E78.5 Depression F32.A HTN, goal below 140/90 I10 Panic attack F41.0 Gastroparesis K31.84 Past Medical History: Diagnosis Date Coronary artery disease involving eek coronary artery of eek heart without angina pectoris Gastroesophageal reflux disease without esophagitis Hypercholesterolemia Non-ST elevation myocardial infarction (NSTEMI) ([facility]) FABIOLA (obstructive sleep apnea) Sleep apnea, obstructive Past Surgical History: Procedure Laterality Date EGD, FLEXIBLE, DIAGNOSTIC 11/06/2021 w/ PEDROZA - acid reflux / [facility] Review of patient's allergies indicates: Allergen Reactions No Known Drug Allergy Social History Tobacco Use Smoking status: Every Day Packs/day: 1.00 Years: 35.00 Additional pack years: 0.00 Total pack years: 35.00 Types: Cigarettes Smokeless tobacco: Never Tobacco comments: 03/10/22 Smokes 10-20 cig/day 07/23/23- half to 3/4 pack a day Substance Use Topics Alcohol use: Yes Alcohol/week: 6.0 standard drinks of alcohol Types: 6 12 oz of beer per week Comment: social Vaping/E-Cigarette Use Vaping/E-Cigarette Use Never User Vaping/E-Cigarette Substances Vaping/E-Cigarette Devices Family History Problem Relation Age of Onset Aortic aneurysm Mother Aortic aneurysm Father REVIEW OF SYSTEMS: Negative for constitutional, eyes, cardiac, pulmonary, hepatic, renal, digestive, hematologic, epileptic, syncopal, musculo-skeletal, mental health, integumentary, hypertensive, lipid, arthritic, diabetic, thyroid or neurologic disorders (except as listed in the PMH and Problem List). PHYSICAL EXAM: Vital Signs: BP: 137 mmHg/91 mmHg (07/31/23854) Pulse: 83 (07/31/23854) Temp: 37.11 C (07/31/23854) Temp Summary: Temp Min: 37.1 C (98.8 F) Max: 37.1 C (98.8 F) SpO2: 95 % (07/31/23854) O2 flow rate: 0 L/MIN (07/31/23854) Supplemental O2 Delivery: Room Air, None (07/31/23854) GENERAL APPEARANCE: cooperative, appears stated age, well-appearing, well- developed, well-nourished, normal eye contact, no acute distress HEENT: H: no lesions, ulcerations, swelling, erythema, tenderness, and asymmetry E: EOMI, PERRL, sclera white w/o injection, conjunctiva pink E: hearing intact, no otorrhea N: nares patent, no rhinorrhea, mucosa moist -Septal deviation: Yes, mild left -Inferior turbinate hypertrophy: Yes, mild T: supple, non-tender, soft, full range of motion, no palpable LAD - Neck circumference (inches): 15.5" - Throat length (cm): 7 Facial Profile: Convex ORAL CAVITY/OROPHARYNX: Dentition: Stable occlusion bilaterally Angle Classification: Class 1 U1 (Repose): 0 TMJ: no click, crepitus, or palpable pain, LISSETT = 42 Soft Tissues and Mucosa: Lips buccal mucosa, gingiva, FOM, tongue, oropharynx without erythema, tenderness, ulcerations, or lesions. Mallampati: 3 Tonsils (Justus grade): n/a - no tonsils Tongue Size: Enlargement Scale: Relative macroglossia Otherwise, lips, buccal mucosa, gingiva, FOM, tongue, oropharynx without erythema, tenderness, ulceration, or lesions. CHEST/LUNGS: normal respiratory effort, symmetric chest rise, CTABL CARDIAC: Regular rate & rhythm NEUROLOGIC EXAM: alert & oriented x 3 with fluent speech, CNII-XII intact Images personally reviewed and interpreted. Date: 07/23/2023 Teeth: #13, 15 root tips Periodontal Bone: no generalized bone loss Maxillary Sinus: clear bilaterally Condyles: rounded, seated in fossae bilaterally Maxilla: no bony pathology Mandible: no bony pathology Nasal septum: Deviated left Inferior nasal turbinates: Mild inferior turbinate hypertrophy No results in the last 7 days - inpatent use only No results in the last 7 days - inpatent use only ASSESSMENT: Marla Kearns is a 57 year old female with Principal Problem: FABIOLA (obstructive sleep apnea) (POA: Yes) POA = Present On Admission PLAN: Proceed with procedure: DISE SCDs BERNADETTE Moncada DMD' Associated attestation - Joseph English DDS - 07/31/2023 3:29 PM EST I saw and evaluated the patient today. I have reviewed the trainee note and agree. documented in this encounter Nursing Notes * Yoav Herring RN - 07/31/2023 10:53 AM EST Dual Licensed Skin Assessment completed by yoav jhaveri and antony jhaveri. The patient is/has a N/A Skin Breakdown (includes non blanchable erythema): Yes - Surgical/Procedural changes only. * Zena Leroy RN - 07/31/2023 9:33 AM EST Dual Licensed Skin Assessment completed by liliana leroy rn and mayra villagomez rn. The patient is/has a N/A Skin Breakdown (includes non blanchable erythema): No * Rut Miguel RN - 07/27/2023 11:37 AM EST Presurgery instructions sent to patient via Sparrow message. NO ANESTHESIA EVAL REQUESTED PER CASE DOCUMENTATION. PREOP PATIENT INFORMATION AND EDUCATION: MEDICATION INSTRUCTIONS: The day of surgery/procedure, you may TAKE the following medications with a sip of water up to 3 hours prior to your arrival time: -Albuterol inhaler if needed, please bring to the hospital with you -Alprazolam if needed -Atorvastatin -Pantoprazole Per surgeon, ok to continue Aspirin and Plavix (you may take these am of procedure) AVOID/ DO NOT TAKE any medications the morning of surgery/procedure that are not listed above. STOP taking the following medications the noted number of days prior to surgery/procedure unless otherwise specified by your surgeon: You are prescribed Ozempic, a medication classified as a GLP-1 Agonist. This medication may be associated with delayed gastric emptying (delayed emptying of your stomach content into your intestine).Due to the delay in emptying your stomach you may experience symptoms such as abdominal discomfort/bloating, nausea and/or vomiting. These symptoms can increase your risks of potential complications associated with anesthesia. You will have the opportunity to discuss your symptoms the day of surgery when you will meet your anesthesia team and a plan of care is made. Please follow these recommendations based on whether you are experiencing symptoms or not to reducethe risk of potential complications associated with anesthesia: -You are taking a WEEKLY-dosed GLP-1 agonist HOLD your dose a minimum of 3 days prior to your procedure AND follow a CLEAR LIQUID diet for 24 hours before your procedure. INSTRUCTIONS FOR CLEAR LIQUID DIET 24 HOURS BEFORE YOUR PROCEDURE: -The day before your procedure you may eat breakfast, it is recommended to eat your breakfast before 9:00 AM -The day before your procedure after eating breakfast, you MUST follow a clear liquid diet. A clearliquid diet includes water, soda, clear juices (without pulp), black coffee or tea (without milk/cream), jello (without anything added to it) and broth (without anything added to it). -The day of your procedure you may have clear liquids until 3 hours prior to your procedure's arrival time. Please follow surgeon's instructions regarding use of Aspirin, Coumadin, Plavix, Eliquis, and any other blood thinner including NSAIDs (non-steroidal anti- inflammatory drugs, eg, Advil, Ibuprofen, Motrin, Aleve, Naproxen); if you have any questions regarding your anticoagulation therapy please contact your surgeon's clinic. Please verify any proposed stoppage of your anticoagulation therapy with the agent's prescribing provider. 10 days prior to surgery/procedure Stop all Herbal supplements, Green Tea, Turmeric, Melatonin, CBD, THC, etc. Stop all Vitamins (including Vitamin E) 24 hours prior to surgery/procedure DO NOT consume any alcohol. DO NOT use medical marijuana. DO NOT smoke or use tobacco products of any kind after midnight prior to surgery. *Using any of these products may increase your risks of procedural complications. IF IT IS LESS THAN RECOMMENDED STOPPAGE TIME PLEASE STOP AT TIME OF NOTIFICATION. FASTING RECOMMENDATIONS: To reduce risk, it is important for all elective surgery patients to follow the specific fasting guidelines listed below. If you have received more stringent guidelines, please follow the MOST RESTRICTIVE guidelines that you have been provided. DO NOT EAT after midnight on the night prior to your surgery date. You are allowed to drink clear liquids up to two hours prior to arrival time to the hospital or surgery center. Examples of clear liquids include water, clear fruit juice without pulp, clear carbonated beverages, clear tea, and black coffee. Any drinks given by your surgical service take as directed. Infant/pediatric patients who currently drink breast milk, formula, and non-human milk must not eat after midnight. These patients are allowed to drink only the liquids listed below up to two hours prior to arrival time to the hospital or surgery center: Ingested Material Minimum Fasting Time Clear liquid After midnight up to 2 hours prior to arrival time Breast milk Up to 4 hours prior to arrival time Infant formula Up to 6 hours prior to arrival time Non-human milk Up to 6 hours prior to arrival time THE DAY BEFORE YOUR SURGERY: -Drink plenty of fluid the day before your surgery. Contact your surgeon's office if you develop any of the following within 2 weeks of surgery: A cold Infection Fever Shingles Chicken pox or exposure to chicken pox Open areas such as scrapes, cuts, bauman or other skin conditions Rashes GENERAL INSTRUCTIONS FOR PREPARING FOR SURGERY: BATHING INSTRUCTIONS: Bathe the evening prior to and the morning of surgery/procedure. Cleanse your body using ONLY anti-bacterial soap (eg, Dial, Safeguard) or any specific soap/cleansers and instructions provided by your surgeon (eg, Chlorhexidine). -You should brush your teeth the morning of surgery. Do NOT apply any lotions, powders, sprays, creams, oils, make-up, or deodorants after bathing. No hairspray, or nail lao on fingers or toes. Day of surgery/procedure do not use tampons. If you wear contacts wear your eyeglasses if available otherwise bring your contact supplies with you to remove them prior to your surgery/procedure. If you wear glasses or dentures, please bring cases in which you can store them during your surgery. Please remove all piercings and jewelry and leave them at home. Wear comfortable and loose clothing. -Please leave all valuables at home. -If you use a CPAP and are staying overnight, please bring your mask and tubing with you to the hospital. -If you use an assistive mobility device (walker, cane, etc), please label it with your name and bring to hospital. -An escort bull driver is required if you are being discharged the same day of the surgery. You should have a responsible adult over the age of 18 [address] you home. This person should be present with youin the hospital at the time of discharge and for the first 24 hours after the surgery to support your needs. If you are taking a taxi home, you must have your responsible democrat accompany you in the taxi ride home at the time of discharge. OR times subject to change. Please check voicemail messages the day/evening before your surgery forany updates. PRE-OP: You will be taken to the pre-op area where your vital signs (blood pressure, pulse and temperature)will be taken. Any preparations that need to be done will be done there. When it is time for your surgery, you will be taken to the operating room. PARENTS OF PEDIATRIC PATIENTS WILL BE ALLOWED TO STAY WITH THEIR CHILDREN UNTIL THEY ARE ESCORTED TO THE OPERATING ROOM OUTPATIENT SURGERY PATIENTS: After your surgery you will be taken to the Same Day Surgery Unit when you are awake and will go home from there. You will get instructions about your home care before you leave. Arrange to have someone drive you home from the hospital. You may not drive for 24 hours after anesthesia. You must havean adult stay with you at home for 24 hours after your operation. This is very important. If you are not able to comply with these guidelines, your Short Stay surgery cannot be done. ADMISSION PATIENTS: After your stay in the recovery area, you will be taken to your room. Your family may visit you in your room based on current visitation policy. If a next day discharge is expected, it is important to make arrangements for a bull driver to take you home. Please be aware our visitation policies are subject to change Professionals, attendants, caregivers or family members are allowable visitors for patients with intellectual, developmental or cognitive disabilities, communication barriers or behavioral concerns. Because patients' and families' needs vary, they will be taken into account when applying visitation restrictions. ANESTHESIA INFORMATION This information has been prepared to help you and your family better understand the process of anesthesia, so that you may help make well-informed decisions about your care. This information is alsoprovided to guide your completion of the [facility] anesthesia consent form which addresses real, but infrequent, problems associated with anesthesia. IMPORTANT INFORMATION TO PREVENT YOUR SURGERY FROM BEING CANCELLED/ RESCHEDULED: --You are required to have a bull driver to take you home whether you are admitted to the hospital following your surgery or not --You are required to have a responsible adult with you for the first 24 hours after surgery to support your needs Types of Anesthesia: Local Anesthesia Local anesthetic drugs (numbing drugs) are usually injected into the tissues to numb just the specific location of your body requiring minor surgery, such as an area of your hand or foot. Regional Anesthesia -Regional anesthesia involves the use of local anesthetics (numbing drugs) to numb larger areas of your body by blocking nerves to those areas. This is commonly referred to as a nerve block. Another way of performing regional anesthesia is by blocking nerves of the spinal cord by injecting numbing m edicines with great exactness around those nerves. This is called spinal or epidural anesthesia depending on exactly where the medication is injected. The type of regional anesthesia selected dependson the type of surgery and whether regional anesthesia is being done to help with pain after surgery or as a part of the anesthesia for surgery. You may remain awake, be sedated, or be given a general anesthetic depending on the type of surgery and the type of regional anesthesia performed Monitored Anesthesia Care (MAC) -Describes a range of sedation that can be given to a patient undergoing a procedure. The level of sedation usually depends on what is needed for the procedure being performed. A patient could be awake and aware of the procedure being performed but be relaxed and able to follow instructions as needed or may be unaware of what is happening and only rouse to significant stimulation. A patient may be able to speak, hear things around them, and answer questions and follow commands but is not in pain or anxious. A patient may experience varying depths of sedation during the procedure. The use of general anesthesia could result if this type of anesthesia is ineffective. General Anesthesia - Occurs by using a combination of medications to put a patient into a deep, sleep-like, unresponsive state for surgery. This is required for many surgical procedures. Under general anesthesia, a patient does not feel pain and is unaware of what is happening during the procedure. Systems in the body may not function normally while a patient is under general anesthesia. They are monitored by the anesthesia provider and may need to be assisted while a patient is under general anesthesia. For example, a breathing device may need to be placed in the airway to assist breathing and medications may need to be given to ensure that your blood pressure and heart rate remain normal. Risks of Anesthesia: Regional/Local/Nerve Blocks -Include but are not limited to, , cardiac or respiratory arrest, permanent complete paralysis, permanent nerve injury, seizure, spinal headache, backache, pain in buttocks and legs, infection, bleeding, leakage of spinal fluid, inadequate pain relief, bowel or bladder dysfunction, prolonged numbness or pain, temporary drop in blood pressure, or allergic reaction to the medications. Monitored Anesthesia Care (MAC) -Common risks include temporary dizziness, light-headedness, nausea and/or vomiting, and leakage ofintravenous fluid into the tissues with swelling or discoloration of the area or residual pain. Less common risks include, but are not limited to, , heart attack, permanent brain damage, stroke,pneumonia, blood clots, awareness, nerve stretch injury of your arm, neck or leg, permanent liver damage and allergic reaction to the medications. General Anesthesia -More common risks include temporary sore throat, pain in the neck or other muscles, dizziness, light-headedness, nausea and/or vomiting, and leakage of intravenous fluid into the tissues with swelling or discoloration of the area or residual pain. Less common risks include, but are not limited to,, heart attack, permanent brain damage, stroke, pneumonia, blood clots, irritation of the cornea of your eye, vision loss, loosened or broken teeth, or other oral injuries, awareness, nerve stretch injury of the arm, neck or leg, hoarseness, laryngospasm, permanent liver damage and allergic reaction to the medications. History of anesthesia complications: If you or a family member have had a complication related to anesthesia such as difficulty with placement of a breathing tube or a serious reaction to a medication administered for anesthesia, pleasetell your anesthesia provider. Having this information will help keep you safe while under anesthesia Nausea: A common side effect of anesthesia is nausea, but some patients do experience both nausea and vomiting. If you have experienced nausea or vomiting after anesthesia in the past, be sure to tell your anesthesia provider so medication can be given to help prevent it from happening again. Patient safety/consenting process: All surgical procedures and anesthetics have some small risks. They are dependent upon many factorsincluding the type of surgery and your medical condition. That is why it is important to know aboutany underlying medical problems, how they are treated and how they can be managed to reduce the risks of anesthesia and surgery. Thus, it is important for your anesthesia provider to ask detailed questions about your medical history, and to know what prescription medications you are taking, including dosages and schedules, as well as any over the counter or herbal medicines and supplements. You must notify the doctor of any of the following: -if you are or possibly -if you have any sensitivity to medications -present mental and physical condition -if recently consumed alcohol or non-clear liquids -if you are presently on psychiatric mood-altering drugs or other medications If you are a female of child-bearing age and you use any form of hormone-based contraception, please continue to use it and, in addition, use an alternative form of contraception, such as condoms andspermicide for a month after discharge from the hospital. This is because during the hospitalization you might receive one or more medications that may render hormone-based contraceptives ineffectivefor several days or weeks. The affected contraceptives include, but are not limited to, the usual contraceptive pills, most types of intrauterine devices, Depo-Provera shots, hormonal patches, and hormonal vaginal rings. If you are not sure, contact your primary care physician, your furniture and bedding inspector, or your surgeon to check if this warning applies to you. You may need to have invasive monitoring, which includes the insertion of catheters into your veinsand arteries. This is done to measure pressures, to take blood samples, and may be used in emergentsituations for intravenous access. This monitoring has risks including, but not limited to, injury to your arteries, lung collapse, bleeding, nerve injury as well as the risks related to anesthesia. An esophageal probe may be used to monitor your heart, this monitor has risks which include sore throat, hoarseness, difficulty with swallowing, loosened or broken teeth and esophageal injury. Major complications are rare but could include , respiratory distress, an abnormal heartbeat, infection, and bleeding. As part of the consent to administer anesthesia authorization you will discuss the following with the anesthesia doctor and his/her associates: -your present condition and diagnosis as it pertains to anesthesia or sedation administration -a description of the proposed anesthetic/sedation technique or procedure to be used -significant risks and benefits of the proposed anesthetic/sedation technique or procedure -any applicable alternatives, including their risks and benefits -if applicable, use of back-up method of contraception for 30 days after discharge -if applicable, the option of having no treatment and the potential results of this -if your procedure is in an outpatient surgery setting-the risk associated with having this procedure in this type of setting should be discussed as well as the potential need for transfer to the hospital if necessary Please be sure to have all questions that you have answered prior to signing the consent to administer anesthesia. You can make your care safer by being an active, informed patient. It is important that you are involved in your health care. Being a good patient does not mean being a silent one. If you have questions, problems, safety concerns or unmet needs, please let us know if you would like further clarification of the "Patient Rights and Responsibilities" as they pertain to you, or would like more information regarding our complaint and for grievance process, please call the site where you receive care and request to speak withthe patient advocate line. [facility]: Contact # [phone] Directions to Surgical Suite in from the [place] Entrance The Surgical Waiting Room can be found in the Lobby of [facility]. Enter through Main Lobby Entrance and the Waiting Room is directly in front of you. Proceed to check in and give them your name. Directions to Surgical Suite from the East Entrance Enter the East entrance and follow the hallway to the J elevator. Take the J elevator up to Level 1. Continue down the long hallway to the main [facility] Lobby. The Surgical Waiting Room will be on your Right. Proceed to check in and give them your Name. Directions to Surgical Suite from the Parking Garage Enter the [facility] lobby and proceed down the lucas to the left. At the end of the lucas, turn right. Continue down the long hallway to the main [facility] Lobby. The Surgical Waiting Room will be on your Right. Proceed to check in and give them your Name. THANK YOU FOR CHOOSING [facility]! Patient identified by: name/birthdate Person taught: Patient Optime case procedure confirmed with patient/parent/guardian - no consent signed. Laterality confirmed as Bilateral Surgery date at time of Pre-Surgery Center Encounter: 07/31/23 What procedure is patient having? Drug-Induced Sleep Endoscopy In an emergency, is patient willing to accept blood products or blood transfusion? Not asked Do you need to place a blood bank order? No Anesthesia consent pool notified? N/A Anesthesia evaluation requested per case documentation? No Preop Evaluation Requested? No PATIENT EDUCATION SCREENING Person taught: Patient Motivation Level: Asks Questions and Eager to Learn Language Barrier: No Physical Barrier: N/A METHOD: Lecture-telephone interview Patient Preferred Learning Methods: Lecture-Telephone interview Health History interview completed, questions answered, and the following patient instructions provided via telephone interview: Preoperative bathing instructions General preoperative instructions Medication instructions NPO instructions OUTCOME: State / Describe / Explain Rut Miguel RN documented in this encounter OR Notes * OR Surgeon - Sada Moncada DMD - 07/31/2023 10:05 AM EST [place] [address] [address] [facility] [address] OPERATIVE REPORT Name: Marla Kearns Date: 07/31/2023 Time: 10:05 AM Location: [facility] Service: Oral & Maxillofacial Surgery Date of Operation: 07/31/2023 Pre-op Diagnosis: Obstructive Sleep Apnea Post-op Diagnosis: Same Operation: Drug-induced sleep endoscopy, with dynamic evaluation of velum, pharynx, tongue base, and larynx for evaluation of sleep-disordered breathing, flexible, diagnostic ([id number]) Surgeon: Joseph English DDS Assistants: Sada Moncada DMD Anesthesia: Monitored Local Anesthesia with Sedation Drains: none Estimated Blood Loss: 0 ml. IV Fluids: See anesthesia notes Urine Output: N/A Specimens/Disposition: None Apparent Intraoperative Complications: NONE Patient Condition: good Disposition: In and Out recovery unit Indications and History: Marla Kearns is a 57 year old female with severe obstructive sleep apnea who is interested in discussing surgical treatment options. Initial Consultation (OMS): 07/23/23 Year of Dx: 2020 Sleep Provider: Peter [facility] Sleep Comorbidities: HTN Chief complaints: poor sleep quality, loud snoring with witnessed apneas, daytime somnolence. Most Recent Sleep Study: Peter Early PSG, 06/26/22, AHI: 94/3, ELENA: 0 Intolerant to CPAP/BiPAP/AutoPAP because GERD (reflux during mask-wearing), Ill- fitting masks, Anxiety. Worthing Sleepiness Scale (ESS): BMI: 38.5 Description of the procedure was thoroughly described to the patient. Risks and benefits were discussed. Opportunity for questions was given. All questions answered to satisfaction. The patient freely signed the consent form. Description of Operation: On the day of surgery the patient was identified by name, date of , and medical record number in the preoperative holding area. The procedure, risks, benefits, alternatives were discussed. Questions were invited and answered. Consent was confirmed, written and verbal. The patient was then brought to the operating room awake and placed in the supine position on the operating room table. Standard anesthesia monitors were placed. A universal time-out procedure was performed, as per hospital protocol. No pre-operative benzodiazepines or opiates given. Monitored sedation with propofol IV was initiated by Anesthesia team. Once the patient was appropriately sedated and began snoring, the procedure commenced. Endoscopy A flexible nasopharyngoscope was inserted passively into the right naris and passively guided through the nasal cavity, nasopharynx, oropharynx, and hypopharynx to the level of the larynx. Findings are as follows: Nasal: Septum: Midline Inferior Turbinates: [place], moist without lesions and mildly hypertrophic Middle Turbinates: [place], moist without lesions and mildly hypertrophic Mucosa: normal mucosa Palate: P2 - Circumferential collapse at the level of the genu of the soft palate. Percentage: 100% Tonsils: T1 - Tonsils present, but obscuring <50% of the airway. Lateral Pharyngeal Wall: L1 - Collapse of lateral pharyngeal wall present, <50% obstruction. Tongue Base: Tb2 - The tongue base collapses posteriorly, pressing into the epiglottis with >50%obstruction. Epiglottis: E0 - No epiglottic collapse. Not a candidate for Inspire. Larynx: The valleculae, glosso-epiglottic folds, piriform recesses, post cricoid region, posterior wall of the laryngopharynx, epiglottis, arytenoids, aryepiglottic folds, cartilages, vestibular folds, true cords, subglottic region, and the rings of the trachea. No suspicious lesions were noted. All visualized areas were unremarkable. This marked the completion of the procedure. The endoscope was removed. The patient was returned tot care of Anesthesia where Marla was subsequently emerged from sedation and transferred to the recovery unit awake, breathing comfortably, and hemodynamically stable. The patient was noted to tolerate the procedure well. Sada Moncada DMD cc: Professional Reimbursement and Compliance Associated attestation - Joseph English DDS - 07/31/2023 3:30 PM EST A procedure was performed. I was present for entire procedure. I agree with the trainee note. documented in this encounter Plan of Treatment Upcoming Encounters Date Type Department Care Team (Late st Contact Info) Description 08/05/2023 1:00 PM EST Telemedicine Oral Maxillofacial Surgery, [place] [address] [place] [address] Joseph English DDS [address], [place] [id number] Scheduled Procedures Name Priority Associated Diagnoses Date/Ti me DRUG-INDUCED SLEEP ENDOSCOPY, WITH DYNAMIC EVALUATION OF VELUM, PHARYNX, TONGUE BASE, AND LARYNX FOR EVALUATION OF SLEEP-DISORDERED BREATHING, FLEXIBLE, DIAGNOSTIC FABIOLA (obstructive sleep apnea) 07/31/2023 10:15 AM EST Health Maintenance Due Date Last Done Comments DISCUSS TOBACCO CESSATION (REFER TO SMARTSET #0308) 1965 Hepatitis B (1 of 3 - [...] 09/04/2008 LUNG CANCER SCREENING - USE SMARTSET 11093 09/04/2013 Zoster Vaccines (1 of 2) 09/04/2013 COVID-19 Vaccine ( season) 2023 07/04/2021, 09/15/2020, 08/25/2020 Influenza Vaccine (FLU shot) (#1) 2023 04/10/2015 GFR 07/23/2024 07/23/2023, 05/15/2022 Diabetes Screening 07/31/2026 07/31/2023, 0 07/23/2023, 05/15/2022, Additional history exists GARDASIL-HPV IMMUNIZATION SERIES Aged Out No longer eligible based on patient's age to complete this topic MENINGOCOCCAL (MENACTRA/MENVEO) Aged Out No longer eligible based on patient's age to complete this topic documented as of this encounter Medical Devices Not on filedocumented as of this encounter Procedures Procedure Name Priority Date/Time Associated Diagnosis Comments GLUCOSE METER, POINT OF CARE GERRY 07/31/2023 9:28 AM EST documented in this encounter Results * GLUCOSE METER, POINT OF CARE (07/31/2023 9:28 AM EST) Glucose Meter 79 70 - 120 mg/dL 07/31/2023 9:[address] [facility] [employer] [facility] Blood Whole blood specimen / Unknown 07/31/2023 9:28 AM EST 07/31/2023 9:37 AM EST Joseph English DDGeorgi LAB POINT OF C ARE TEST DOCKED DEVICE UNSOLICITED RESULTS [facility] [address] [place] [address] documented in this encounter Visit Diagnoses Diagnosis FABIOLA (obstructive sleep apnea)- Primary Obstructive sleep apnea (adult) (pediatric) FABIOLA (obstructive sleep apnea) Obstructive sleep apnea (adult) (pediatric) documented in this encounter Administered Medications Inactive Administered Medications - up to 3 most recent administrations Medication Order MAR Action Action Date Dose Rate Site Acetaminophen (Tylenol) tab 975 mg 975 mg, Oral, PREOP, First dose on Thu07/31/23 at 0945, Last dose on Thu07/31/23 at 0945, For 1 dose, Maximum 4 g acetaminophen/day. Avoid in patients with severe hepatic impairment or severe active liver disease. Administer 60 minutes prior to OR., Pre-Op Given 07/31/2023 9:18 AM EST 975 mg Glycopyrrolate (Robinul) inj 0.2 mg 0.2 mg, Intravenous, ONCE, On Thu07/31/23 at 0945, For 1 dose, WASTE INFO: Return waste medication to pharmacy in zip lock bag - SPC container., Pre-Op Given 07/31/2023 9:44 AM EST 0.2 mg isolyte-S pH 7.4 infusion Intravenous, Plasma-LYTE 148, isolyte-S, and isolyte-S pH 7.4 are considered equivalent - including for MAR barcode scanning., CONTINUOUS, Starting on Thu07/31/23 at 0945, Until Thu07/31/23 at 1542, Pre-Op New Bag 07/31/2023 9:31 AM EST 1,000 mL 100 mL/hr documented in this encounter Active and Recently Administered Medications Times are shown in EST. Scheduled Medication Order 07/29/2023 07/30/2023 07/31/2023 Acetaminophen (Tylenol) tab 975 mg (COMPLETED) 975 mg, Oral, PREOP, First dose on Thu07/31/23 at 0945, Last dose on Thu07/31/23 at 0945, For 1 dose, Maximum 4 g acetaminophen/day. Avoid in patients with severe hepatic impairment or severe active liver disease. Administer 60 minutes prior to OR., Pre-Op 09 (Given - Provid er: Zena Leroy RN) Glycopyrrolate (Robinul) inj 0.2 mg (COMPLETED) 0.2 mg, Intravenous, ONCE, On Thu07/31/23 at 0945, For 1 dose, WASTE INFO: Return waste medication to pharmacy in zip lock bag - SPC container., Pre-Op 0944 (Given - Provid er: Zena Leroy RN) Continuous Medication Order 07/29/2023 07/30/2023 07/31/2023 isolyte-S pH 7.4 infusion Intravenous, Plasma-LYTE 148, isolyte-S, and isolyte-S pH 7.4 are considered equivalent - including for MAR barcode scanning., CONTINUOUS, Starting on Thu07/31/23 at 0945, Until Thu07/31/23 at 1542, Pre-Op 0931 (New Bag - Prov ider: Zena Leroy RN) documented in this encounter Advance Directives Latest Code Status on File Code Status Date Activated Date Inactivated Comments Full Code 07/31/2023 9:11 AM 07/31/2023 3:42 PM This or braeden reflects the patients wishes and were consensually agreed upon. Question Answer Comments Discussion of Advance Directives occurred with: Patient Care Teams Drafter (Cad) Electronic Relationship Specialty Start Date End Date Yvonne Manzano MD [address] [place] [address] PCP - General Family Medicine 11/06/21 documented as of this encounter
--- OUTSIDE RECORDS SUMMARY | 2023-10-29 01:06 | External Medical Summary | Summary of Care ---
Author Name Unknown Organization [facility] Address [address] [place] [address] Phone [phone] Care Team Providers Care Circulation Manager Name Role Phone Yvonne Manzano MD Primary Care Provider Reason for Visit * Reason Comments Follow Up Encounter Details Date Type Department Care Team (Late st Contact Info) Description 09/11/2023 11:20 AM EDT Office Visit Sleep Disorders Ctr [facility] [address] [facility] ([place], [place] [address] Ayla Murillo DO [address] [facility] [place] [address] Obstructive sleep apnea*; Nocturnal hypoxemia; Hypersomnia; Severe obesity with body mass index (BMI) of 35.0 to 39.9 with serious comorbidity (HCC) Allergies Active Allergy Reactions Criticality Noted Date Comments No Known Drug Allergy 07/25/2004 documented as of this encounter (statuses as of 09/11/2023) Medications Medication Sig Dispensed Refills Start Date [...] a week. 3 mL 1 07/17/2023 Active CPAP every night at bedtime. 0 Active documented as of this encounter (statuses as of 09/11/2023) Active Problems Problem Noted Date Diagnosed Date Gastroparesis 02/06/2022 Gastroesophageal reflux disease 01/27/2022 FABIOLA (obstructive sleep apnea) 01/27/2022 Abnormal weight gain 01/27/2022 Tobacco use 01/27/2022 Dyslipidemia, goal LDL below 70 01/27/2022 Depression 01/27/2022 HTN, goal below 140/90 01/27/2022 Panic attack 01/27/2022 Coronary artery disease invo lving [place] coronary artery of [place] heart without angina pectoris 01/20/2022 documented as of this encounter (statuses as of 09/11/2023) Resolved Problems Problem Noted Date Diagnosed Date Resolved Date Hernia, paraesophageal 02/06/202202/06 documented as of this encounter (statuses as of 09/11/2023) Social History Tobacco Use Types Packs/Day Years Used Date Smoking Tobacco: Every Day Cigarettes 1 35 Smokeless Tobacco: Never Tobacco Cessation:Ready to Q uit: Not Asked; Counseling Given: Not Answered Comments:03/10/22 Smokes 10-20 cig/day 09/11/23 currently smoking "1 cigarette to a pack, depends on the day" Alcohol Use Standard Drinks/Week Comments Yes 6 [...] Sign Reading Time Taken Comments Blood Pressure 122/74 09/11/2023 11:27 AM EDT Pulse 86 09/11/2023 11:27 AM EDT Temperature 36.3 C (97.3 F) 09/11/2023 11:27 AM E DT Respiratory Rate 18 09/11/2023 11:27 AM EDT Oxygen Saturation 96% 09/11/2023 11:27 AM EDT ra, rest Inhaled Oxygen Concentration - - Weight 95.3 kg (210 lb) 09/11/2023 11:27 AM EDT Height 160 cm (5' 3") 09/11/2023 11:27 AM EDT Body Mass Index 37.2 09/11/2023 11:27 AM EDT documented in this encounter Progress Notes * Ayla Murillo, - 09/11/2023 11:38 AM EDT Sleep Medicine Follow-Up HISTORY: Marla Kearns is a 58 year old female for follow up of severe FABIOLA. [facility] HST 08/04-12/2020: AHI 65.4, 72.9; SpO2 [place]smery 75%, 74%. Attempted CPAP (through [facility]), not well tolerated. Claustrophobic with FFM, and reflux/vomiting in FFM caused her to return the CPAP. Seen by me 03/10/22. + EDS for a couple years, + weight gain in the past couple years. Hx NE 05/2020. + snoring, witnessed apneas. [place] 22, FOSQ 24. Hx HTN, CAD, GERD, gastroparesis. Split-night PSG 06/26/22: AHI 94.3, supine AHI 102, SpO2 rosmery 59%, time <89% 144 min. PLMI 3.4.Suggested BiPAP 19/05 cwp. Started BiPAP 19/05 cwp. 04/21/23: not doing well with BiPAP. She felt it caused violent sneezing to the point where she hadcracked ribs. She also had burning of nose (unsure if related to dryness). Ordered setting adjustment to 19/10 cwp, and had her increase humidity setting from 4 to 6. The BiPAP pressure setting was never adjusted. It seems there was some miscommunication regarding why the DME needed to see her SD card (she didn't realize that was to adjust the pressure settings, not just to see data), so they never got the pressure setting updated per the order from our last appt. In the interim, she saw Dr. English for [facility] evaluation, but was not a candidate based on DISE (complete concentric collapse). Subjective PAP adherence: not currently using due to not tolerating the pressure. Daytime sleepiness: yes Drowsy driving: manageable. Needs to stop with longer drives. Accidents or near-misses due to drowsiness while driving: none Recent weight change: no [place] Sleepiness Scale: 21 [place] Sleepiness Scale Question 09/11/2023 11:29 AM EDT - Filed by Lalita Bryson LPN What is the chance you will doze off in the following situation? Sitting and reading High chance of dozing Watching TV High chance of dozing Sitting inactive in a public place, such as a theater or meeting High chance of dozing As a passenger in a car for an hour without a break High chance of dozing Lying down to rest in the afternoon when circumstances permit High chance of dozing When sitting and talking to someone High chance of dozing When sitting quietly after lunch without alcohol High chance of dozing In a car, while stopped for a few minutes in traffic No chance of dozing Score (range: 0 - 24) 21 BiPAP Compliance: No recent data available. Equipment: DME Provider is [facility] Uses a ResMed AirCurve Auto BiPAP, w/ SD card. Additional changes in health in the interim of care: no Patient Active Problem List Diagnosis Code Coronary artery disease involving [place] coronary artery of [place] heart without angina pectoris I25.10 Gastroesophageal reflux disease K21.9 FABIOLA (obstructive sleep apnea) G47.33 Abnormal weight gain R63.5 Tobacco use Z72.0 Dyslipidemia, goal LDL below 70 E78.5 Depression F32.A HTN, goal below 140/90 I10 Panic attack F41.0 Gastroparesis K31.84 Outpatient Medications Marked as Taking for the 09/11/23 encounter (Office Visit) with Ayla Murillo DO Medication Sig CPAP every night at bedtime. Ozempic (0.25 or 0.5 MG/DOSE) 2 MG/3ML Solution Pen-injector (Semaglutide(0.25 or 0.5MG/DOS)) Inject 0.5 mg under the skin once a week. Praluent 75 MG/ML Subcutaneous Solution Auto-injector Inject 75 mg under the skin. Every other week EQ Aspirin Adult Low Dose 81 MG Oral Tablet Delayed Release Take 1 Tablet by mouth. In the morning. Atorvastatin Calcium 80 MG Oral Tablet (Lipitor) Take 1 Tablet by mouth in the morning. Clopidogrel Bisulfate 75 MG Oral Tablet (pLAVix) Take 1 Tablet by mouth in the morning. Lisinopril 5 MG Oral Tablet (Prinivil) Take 1 Tablet by mouth in the morning. In the morning.. Pantoprazole Sodium 40 MG Oral Tablet Delayed Release (Protonix) Take 1 Tablet by mouth in the morning. PHYSICAL EXAM: Filed Vitals: 09/11/23 1127 BP: 122/74 Pulse: 86 Resp: 18 Temp: 36.3 C (97.3 F) TempSrc: Tympanic SpO2: 96% Weight: 95.3 kg (210 lb) Height: 1.6 m (5' 3") Body mass index is 37.2 kg/m. General: alert, no acute distress Head: NC/AT Lungs: normal respiratory effort Neuro: speech clear and appropriate ASSESSMENT/PLAN: Obstructive sleep apnea - BiPAP setting not tolerated. We decided today to change to lower autotitrating pressure range, max IPAP 16, min EPAP 5, PS 6 cwp. Discussed that DME does need to see her SD card to get this updatedon her device. - encourage use of BiPAP with all sleep, once it has been adjusted to a tolerable setting. - DME: [facility] - Routine cleaning and change of supplies as needed. - Continue to avoid driving when feeling sleepy/drowsy. Follow-up with Sleep Medicine in 2 months. Discussed to bring her BiPAP (w/ power cord) to the apptif not able to have SD card read in advance of appt. Ayla Murillo DO documented in this encounter Nursing Notes * Lalita Bryson LPN - 09/11/2023 11:20 AM EDT Pt for f/u FABIOLA on CPAP. [facility] [place] Sleepiness Scale Question 09/11/2023 11:29 AM EDT - Filed by Lalita Bryson LPN What is the chance you will doze off in the following situation? Sitting and reading High chance of dozing Watching TV High chance of dozing Sitting inactive in a public place, such as a theater or meeting High chance of dozing As a passenger in a car for an hour without a break High chance of dozing Lying down to rest in the afternoon when circumstances permit High chance of dozing When sitting and talking to someone High chance of dozing When sitting quietly after lunch without alcohol High chance of dozing In a car, while stopped for a few minutes in traffic No chance of dozing Score (range: 0 - 24) 21 documented in this encounter Plan of Treatment Upcoming Encounters Date Type Department Care Team (Late st Contact Info) Description 11/30/2023 1:20 PM EDT Office Visit Sleep Disorders Ctr [facility] [address] [place] [address] Ayla Murillo, [address] [place] [address] Health Maintenance Due Date Last Done Comments DISCUSS TOBACCO CESSATION (REFER TO SMARTSET #0600) 1963 Pneumococcal Vaccine: Pediatrics (0 to 5 Years) and At-Risk Patients (6 to 64 Years) (1 of 2 - PCV) 09/04/1969 Depression Screening 1975 HIV Screening 09/04/1978 Albumin/Creatinine Ratio 09/04/1981 Hepatitis C Screening 09/04/1981 DTaP,Tdap,and Td Vaccines (1 - Tdap) 09/04/1982 Pap Smear 09/04/1984 Cervical Cancer Screening 09/04/1993 HPV/Co-Test 09/04/1993 Mammogram 2003 Cologuard 09/04/2008 Colonoscopy 09/04/2008 Colorectal Cancer Screening 09/04/2008 Fecal Occult Blood Test 09/04/2008 Sigmoidoscopy 09/04/2008 LUNG CANCER SCREENING - USE SMARTSET 48922 09/04/2013 Zoster Vaccines (1 of 2) 09/04/2013 COVID-19 Vaccine ( - season) 2023 07/04/2021, 09/15/2020, 08/25/2020 Influenza Vaccine (FLU shot) (#1) 2023 04/10/2015 GFR 07/23/2024 07/23/2023, 05/15/2022 Diabetes Screening 07/31/2026 07/31/2023, 0 07/23/2023, 05/15/2022, Additional history exists GARDASIL-HPV IMMUNIZATION SERIES Aged Out No longer eligible based on patient's age to complete this topic Hepatitis B Aged Out No longer eligi ble based on patient's age to complete this topic MENINGOCOCCAL (MENACTRA/MENVEO) Aged Out No longer eligible based on patient's age to complete this topic documented as of this encounter Medical Devices Not on filedocumented as of this encounter Visit Diagnoses Diagnosis Obstructive sleep apnea- Primary Obstructive sleep apnea (adult) (pediatric) Nocturnal hypoxemia Hypoxemia Hypersomnia Hypersomnia, unspecified Severe obesity with body mass index (BMI) of 35.0 to 39.9 with serious comorbidity (HCC) documented in this encounter Advance Directives Latest Code Status on File Code Status Date Activated Date Inactivated Comments Full Code 07/31/2023 9:11 AM 07/31/2023 3:42 PM This or braeden reflects the patients wishes and were consensually agreed upon. Question Answer Comments Discussion of Advance Directives occurred with: Patient Care Teams Circulation Manager Relationship Specialty Start Date End Date Yvonne Manzano MD [address] [place] [address] PCP - General Family Medicine 11/06/21 documented as of this encounter
--- OUTSIDE RECORDS SUMMARY | 2023-10-29 01:06 | External Medical Summary | Summary of Care ---
Author Name Unknown Organization [facility] Address [address] [place] [address] Phone [phone] Care Team Providers Care Food Service Ambassador Name Role Phone Yvonne Manzano MD Primary Care Provider Reason for Visit * Reason Onset Date Comments Appointment 07/31/2023 Email address Encounter Details Date Type Department Care Team (Late st Contact Info) Description 07/31/2023 Telephone Dental Medicine, [facility] [address] [place] [address] ADDRESS AVAILABLE Appointment (Email address ) Allergies Active Allergy Reactions Criticality Noted Date Comments No Known Drug Allergy 07/25/2004 documented as of this encounter (statuses as of 07/31/2023) Medications Medication Sig Dispensed Refills Start Date End Date Status ALBUTEROL 90 MCG/ACT IN AERSIndications:Acu te bronchitis, antibiotics not indicated two puffs 4 times a day 1 MDI 5 11/06/2005 Suspended Additional Information Patient not taking.Reported on 07/31/2023 Pantoprazole Sodium 40 MG Oral Tablet Delayed Release (Protonix) Take 1 Tablet by mouth in the morning. 0 09/27/2021 Suspended Clopidogrel Bisulfate 75 MG Oral Tablet (pLAVix) Take 1 Tablet by mouth in the morning. 0 09/29/2021 Suspended Lisinopril 5 MG Oral Tablet (Prinivil) Take 1 Tablet by mouth in the morning. In the morning.. 0 09/27/2021 Suspended Atorvastatin Calcium 80 MG Oral Tablet (Lipitor) Take 1 Tablet by mouth in the morning. 0 10/23/2021 Suspended ALPRAZolam 0.5 MG Oral Tablet (xaNAX) Take 1 Tablet by mouth 2 times a day as needed. 0 09/03/2021 Suspended EQ Aspirin Adult Low Dose 81 MG Oral Tablet Delayed Release Take 1 Tablet by mouth. In the morning. 0 12/21/2021 Suspended Praluent 75 MG/ML Subcutaneous Solution Auto-injector Inject 75 mg under the skin. Every other week 0 04/11/2022 Suspended Ozempic (0.25 or 0.5 MG/DOSE) 2 MG/3ML Solution Pen-injector (Semaglutide(0.25 or 0.5MG/DOS)) Inject 0.5 mg under the skin once a week. 3 mL 1 07/17/2023 Suspended Additional Information documented as of this encounter (statuses as of 07/31/2023) Active Problems Problem Noted Date Diagnosed Date Gastroparesis 02/06/2022 Gastroesophageal reflux disease 01/27/2022 FABIOLA (obstructive sleep apnea) 01/27/2022 Abnormal weight gain 01/27/2022 Tobacco use 01/27/2022 Dyslipidemia, goal LDL below 70 01/27/2022 Depression 01/27/2022 HTN, goal below 140/90 01/27/2022 Panic attack 01/27/2022 Coronary artery disease invo lving [place] coronary artery of [place] heart without angina pectoris 01/20/2022 documented as [...] encounter Miscellaneous Notes * Telephone Encounter - Yoli Lubin, FABIOLA - 07/31/2023 10:48 AM EST I left a message on the patients answering machine for the patient to call to schedule an appointment And sent my g Date & Time 08/05/2023 1:00 PM Provider [facility] * Telephone Encounter - Yoli Lubin OSA - 07/31/2023 10:15 AM EST ----- Message from Radha Santana RN sent at 07/31/2023 9:39 AM EST ----- Please call patient with return video appointment with Dr. English. Please confirm email is correct. documented in this encounter Plan of Treatment Upcoming Encounters Date Type Department Care Team (Late st Contact Info) Description 08/05/2023 1:00 PM EST Telemedicine [facility] [address] [place] [address] Joseph Enlgish DDS [address] [place] [address] Scheduled Procedures Name Priority Associated Diagnoses Date/Ti me DRUG-INDUCED SLEEP ENDOSCOPY, WITH DYNAMIC EVALUATION OF VELUM, PHARYNX, TONGUE BASE, AND LARYNX FOR EVALUATION OF SLEEP-DISORDERED BREATHING, FLEXIBLE, DIAGNOSTIC FABIOLA (obstructive sleep apnea) 07/31/2023 10:15 AM EST Health Maintenance Due Date Last Done Comments DISCUSS TOBACCO CESSATION (REFER TO SMARTSET #8709) 1965 Hepatitis B (1 of 3 - [...] 09/04/2008 LUNG CANCER SCREENING - USE SMARTSET 51399 09/04/2013 Zoster Vaccines (1 of 2) 09/04/2013 COVID-19 Vaccine (4 - season) 2023 07/04/2021, 09/15/2020, 08/25/2020 Influenza [...] Not on filedocumented as of this encounter Advance Directives Latest Code Status on File Code Status Date Activated Date Inactivated Comments Full Code 07/31/2023 9:11 AM This order reflects the patients wishes and were consensually agreed upon. Question Answer Comments Discussion of Advance Directives occurred with: Patient Care Teams Food Service Ambassador Relationship Specialty Start Date End Date Yvonne Manzaon MD [address] [place] [address] PCP - General Family Medicine 11/06/21 documented as of this encounter
--- OUTSIDE RECORDS SUMMARY | 2023-10-29 01:06 | External Medical Summary | Summary of Care ---
Author Name Unknown Organization [facility] Address [address] [place] [address] Phone [phone] Care Team Providers Care Machine Silk Screen Printer Name Role Phone Yvonne Manzano MD Primary Care Provider Encounter Details Date Type Department Care Team (Late st Contact Info) Description 09/14/2023 Telephone Pulmonary Medicine, [facility] [address] [facility] [place] [address] Ayla Murillo, [address] [facility] [place] [address] Allergies Active Allergy Reactions Criticality Noted Date Comments No Known Drug Allergy 07/25/2004 documented as of this encounter (statuses as of 09/14/2023) Medications Medication Sig Dispensed Refills Start Date [...] as of this encounter (statuses as of 09/14/2023) Active Problems Problem Noted Date Diagnosed Date Gastroparesis 02/06/2022 Gastroesophageal reflux disease 01/27/2022 FABIOLA (obstructive sleep apnea) 01/27/2022 Abnormal weight gain 01/27/2022 Tobacco use 01/27/2022 Dyslipidemia, goal LDL below 70 01/27/2022 Depression 01/27/2022 HTN, goal below 140/90 01/27/2022 Panic attack 01/27/2022 Coronary artery disease invo lving [place] coronary artery of [place] heart without angina pectoris 01/20/2022 documented as of this encounter (statuses as of 09/14/2023) Resolved Problems Problem Noted Date Diagnosed Date Resolved Date Hernia, paraesophageal 02/06/202202/06 documented as of this encounter (statuses as of 09/14/2023) Social History Tobacco Use Types Packs/Day Years Used Date Smoking Tobacco: Every Day Cigarettes 1 35 Smokeless Tobacco: Never Comments:03/10/22 Smokes 10- 20 cig/day 09/11/23 currently smoking "1 cigarette to [...] encounter Miscellaneous Notes * Telephone Encounter - Maulik Murphy OSA - 09/14/2023 8:01 AM EDT Orders in 09/13 [facility] bipap documented in this encounter Plan of Treatment Upcoming Encounters Date Type Department Care Team (Late st Contact Info) Description 11/30/2023 1:20 PM EDT Office Visit Sleep Disorders Ctr [facility] [address] [place] [id number] Ayla Murillo DO [address] [place] [address] Health Maintenance Due Date Last Done Comments DISCUSS TOBACCO CESSATION (REFER TO SMARTSET #8468) 1965 Pneumococcal Vaccine: Pediatrics (0 to 5 [...] 09/04/2008 LUNG CANCER SCREENING - USE SMARTSET 44831 09/04/2013 Zoster Vaccines (1 of 2) 09/04/2013 [...] Advance Directives occurred with: Patient Care Teams Machine Silk Screen Printer Relationship Specialty Start Date End Date Yvonne Manzano MD [address] [place] [address] PCP - General Family Medicine 11/06/21 documented as of this encounter
--- OUTSIDE RECORDS SUMMARY | 2023-10-29 01:06 | External Medical Summary | Summary of Care ---
Author Name Unknown Organization [facility] Address [address] [place] [address] Phone [phone] Care Team Providers Care Patient Care Associate Name Role Phone Yvnone Manzano MD Primary Care Provider Encounter Details Date Type Department Care Team (Late st Contact Info) Description 08/05/2023 1:00 PM EST Telemedicine Oral Maxillofacial Surgery, [place] [address] [place] [address] Joseph Egnlish, [facility] [address] [place] [address] FABIOLA (obstructive sleep apnea)* Allergies Active Allergy Reactions Criticality Noted Date Comments No Known Drug Allergy 07/25/2004 documented as of this encounter (statuses as of 08/09/2023) Medications Medication Sig Dispensed Refills Start Date [...] as of this encounter (statuses as of 08/09/2023) Active Problems Problem Noted Date Diagnosed Date Gastroparesis 02/06/2022 Gastroesophageal reflux disease 01/27/2022 FABIOLA (obstructive sleep apnea) 01/27/2022 Abnormal weight gain 01/27/2022 Tobacco use 01/27/2022 Dyslipidemia, goal LDL below 70 01/27/2022 Depression 01/27/2022 HTN, goal below 140/90 01/27/2022 Panic attack 01/27/2022 Coronary artery disease invo lving washoe coronary artery of washoe heart without angina pectoris 01/20/2022 documented as of this encounter (statuses as of 08/09/2023) Resolved Problems Problem Noted Date Diagnosed Date Resolved Date Hernia, paraesophageal 02/06/202202/06 documented as of this encounter (statuses as of 08/09/2023) Social History Tobacco Use Types Packs/Day Years [...] on file documented as of this encounter Progress Notes * Joseph English DDS - 08/05/2023 1:00 PM EST Images from the original note were not included. Department of Oral & Maxillofacial Surgery [facility] Sleep Surgery Telemedicine Visit Name: Marla Kearns : 1965 Date: 08/05/23 Please note: this visit was completed through the [employer] telemedicine service. Patient location: HOME. I was in a hospital or clinic location. After connecting through televideo,patient was verified with two unique identifiers. Patient (or authorized legal congressional representative) was then informed that this was a Telemedicine visit and being conducted confidentially over secure lines. Methods to assure confidentiality were taken. Patient acknowledged consent and understanding of pr ivacy and security of the Telemedicine visit. The patient agreed to participate. Patient ID and History HPI: Marla Kearns is a 57 year old female with severe obstructive sleep apnea. Initial diagnosis of FABIOLA in 2020. Chief complaints include poor sleep quality, loud snoring with witnessed apneas, daytime somnolence, and difficulty with concentration. Referring Provider: Padmini Most Recent Sleep Study: Peter Early PSG, 06/26/22 AHI: 94/3 ELENA: 0 CPAP Use: Frequency: Initially got CPAP 1 year ago. Has not used in 2 months Setting: CPAP, BiPAP Issues: GERD (reflux during mask-wearing), Ill-fitting masks, Anxiety Sleep Patterns: Snoring: Yes Witnessed apneas: Yes Average night sleep: 1-2 hours Average number of awakenings per night: 3 Difficulty initiating sleep: No Sleep adjuncts: Yes, xanax Shift worker: No Rudyard Sleepiness Scale: Sitting and readin - High chance Watching television: 3 - High chance Sitting inactive, in a public space: 3 - High chance Lying down to rest in the afternoon when circumstances permit: 3 - High chance Sitting and talking to someone: 3 - High chance Sitting quietly after lunch w/o EtOH: 3 - High chance Passenger in care for 1 hour without a break: 3 - High chance In a car, while stopped for a few minutes in traffic 3 - High chance Total score: Previous Surgeries: Septoplasty: No Turbinectomy: No Sinus Surgery: No Tonsillectomy/Adenoidectomy: Yes, tonsillectomy ~55 years ago Sleep Surgery: No DISE (07/31/2023): demonstrated collapse as follows: P2 T1 L1 Tb2 E0, complete concentric collapse. Septum: midline. Turbinates: mild hypertrophy. Laryngoscopy: unremarkable. (Sleep [facility]ath (2019) [id number]) Today: Patient contacted via audio-video device for post-DISE treatment planning discussion. No changes reported since last clinic encounter. Subjective Subjective PMH: Past Medical History: Diagnosis Date Coronary artery disease involving washoe coronary artery of washoe heart without angina pectoris Gastroesophageal reflux disease without esophagitis Hypercholesterolemia Non-ST elevation myocardial infarction (NSTEMI) (HCC) FABIOLA (obstructive sleep apnea) Sleep apnea, obstructive PSH: Past Surgical History: Procedure Laterality Date DRUG-INDUCED SLEEP ENDOSCOPY, EVAL OF SLEEP-DISORDERED BREATHING, FLEXIBLE, DIAG Bilateral 07/31/2023 DRUG-INDUCED SLEEP ENDOSCOPY, WITH DYNAMIC EVALUATION OF VELUM, PHARYNX, TONGUE BASE, AND LARYNX FOR EVALUATION OF SLEEP-DISORDERED BREATHING, FLEXIBLE, DIAGNOSTIC performed by Joseph English DDS at OR [facility] EGD, FLEXIBLE, DIAGNOSTIC 11/06/2021 w/ PEDROZA - acid reflux / [facility] Meds: No outpatient medications have been marked as taking for the 08/05/23 encounter (Appointment) with Joseph English DDS. All: Review of patient's allergies indicates: Allergen Reactions No Known Drug Allergy SHx: Social History Socioeconomic History Marital status: Spouse name: Not on file Number of children: Not on file Years of education: Not on file Highest education level: Not on file Occupational History Not on file Tobacco Use Smoking status: Every Day Packs/day: 1.00 Years: 35.00 Additional pack years: 0.00 Total pack years: 35.00 Types: Cigarettes Smokeless tobacco: Never Tobacco comments: 03/10/22 Smokes 10-20 cig/day 07/23/23- half to 3/4 pack a day Vaping Use Vaping Use: Never used Substance and Sexual Activity Alcohol use: Yes Alcohol/week: 6.0 standard drinks of alcohol Types: 6 12 oz of beer per week Comment: social Drug use: No Sexual activity: Yes Partners: Male Other Topics Concern Not on file Social History Narrative Not on file Social Determinants of Health Financial Resource Strain: Not on file Food Insecurity: Not on file Transportation Needs: Not on file Physical Activity: Not on file Stress: Not on file Social Connections: Not on file Intimate Partner Violence: Not on file Housing Stability: Not on file Objective Objective Vitals not recorded. Physical Exam limited due [facility]. HEENT without gross deformity. Please see exam findings from the initial consultiation on 07/23/2023 below: Estimated body mass index is 38.59 kg/m as calculated from the following: Height as of this encounter: 1.575 m (5' 2"). Weight as of this encounter: 95.7 kg (210 lb 15.7 oz). GENERAL APPEARANCE: cooperative, appears stated age, well-appearing, [...] TMJ: no click, crepitus, or palpable pain, LSISETT = 42 Soft Tissues and Mucosa: Lips buccal mucosa, gingiva, FOM, tongue, oropharynx without erythema, tenderness, ulcerations, or lesions. Mallampati: 3 Tonsils (Justus grade): n/a - no tonsils Tongue Size: Enlargement Scale: Relative macroglossia Otherwise, lips, buccal mucosa, gingiva, FOM, tongue, oropharynx without erythema, tenderness, ulceration, or lesions. CHEST/LUNGS: normal respiratory effort, symmetric chest rise CARDIAC: Regular rate & rhythm NEUROLOGIC EXAM: alert & oriented x 3 with fluent speech, CNII-XII intact Imaging Images personally reviewed and interpreted. Date: 07/23/2023 Teeth: #13, 15 root tips Periodontal Bone: no generalized bone loss Maxillary Sinus: clear bilaterally Condyles: rounded, seated in fossae bilaterally Maxilla: no bony pathology Mandible: no bony pathology Nasal septum: Deviated left Inferior nasal turbinates: Mild inferior turbinate hypertrophy Diagnostic Sleep Study (PSG/HST) Date of Study: 06/26/23 Assessment & Plan Marla Kearns is a 57 year old female who presents with severe obstructive sleep apnea and is noncompliant with PAP therapy. Sleep Physician: Beata Murillo DO Sleep Co-morbidities: CAD, HTN, GERD, Morbid Obesity ESS: 24 PSG (06/26/2022): BMI 38.5; AHI 94; O2 Nixon 59%; ELENA: 0. BMI: 38.4 DISE (07/31/2023): P2 T1 L1 Tb2 E0, 100% concentric. Septum: midline. Turbinates: pink, moist. Laryngoscopy: unremarkable. Discussed all diagnostic information and addressed various levels of obstruction. Discussed surgical treatment options, including tracheostomy, Inspire hypoglossal nerve stimulator placement, maxillomandibular advancement, intranasal modification, oropharyngeal soft tissue reduction, genial advancem ent, and hyoid suspension. Multi-level obstruction with severe tissue redundancy, poor candidate for soft tissue reduction. Complete concentric collapse at the level of the soft palate, not a candidate for hypoglossal nerve stimulator therapy. Patient not interested in skeletal surgery. Questions invited and answered. Patient demonstrated understanding. Follow up as needed Phani English DDS social services director documented in this encounter Plan of Treatment Health Maintenance Due Date Last Done Comments DISCUSS TOBACCO CESSATION (REFER TO SMARTSET #2358) 1965 Hepatitis B (1 of 3 - [...] 09/04/2008 LUNG CANCER SCREENING - USE SMARTSET 28301 09/04/2013 Zoster Vaccines (1 of 2) 09/04/2013 [...] as of this encounter Visit Diagnoses Diagnosis FABIOLA (obstructive sleep apnea)- Primary Obstructive sleep apnea (adult) (pediatric) documented in this encounter Advance Directives Latest Code Status on File Code Status Date Activated Date Inactivated Comments Full Code 07/31/2023 9:11 AM 07/31/2023 3:42 PM This or braeden reflects the patients wishes and were consensually agreed upon. Question Answer Comments Discussion of Advance Directives occurred with: Patient Care Teams Patient Care Associate Relationship Specialty Start Date End Date Yvonne Manzano MD [address] [place] [address] PCP - General Family Medicine 11/06/21 documented as of this encounter
--- NOTE | 2023-10-30 08:49 | Electrocardiogram Report ---
Test Reason : Blood Pressure : / mmHG Vent. Rate : 087 BPM Atrial Rate : 087 BPM P-R Int : 136 ms QRS Dur : 078 ms QT Int : 366 ms P-R-T Axes : 040 007 035 degrees QTc Int : 440 ms Normal sinus rhythm Normal ECG When compared with ECG of 11-AUG-2020 03:01, No significant change was found Confirmed by Benigno Lentz ([id number]) on 10/30/2023 8:49:35 AM Referred By: REFERRED SELF Confirmed By:Benigno Lentz
--- NOTE | 2023-10-30 12:32 | Electrocardiogram Report ---
Test Reason : Blood Pressure : / mmHG Vent. Rate : 066 BPM Atrial Rate : 066 BPM P-R Int : 132 ms QRS Dur : 080 ms QT Int : 440 ms P-R-T Axes : 054 033 036 degrees QTc Int : 461 ms Normal sinus rhythm Low voltage QRS Borderline ECG When compared with ECG of 27-OCT-2023 17:29, (unconfirmed) No significant change was found Confirmed by Benigno Lentz ([id number]) on 10/30/2023 12:31:46 PM Referred By: REFERRED SELF Confirmed By:Benigno Lentz
== END 2023-10-28 12:14 | disposition home or self-care (01) ==
LOC: ED 17:13 → EDINP 17:13 → SUATTDRO 20:04 → 2S 21:25